=== PATIENT | male | born 1965 | race Caucasian/White ===

== ENCOUNTER 2018-02-12 11:20 | Inpatient (IN) | payer BC ==
[~2018-02-12] VITALS: Ht 177.8 cm; Wt 93.0 kg
[2018-02-12] MEDS ORDERED: SODIUM CHLORIDE 0.9% 1000ML 1,000 ML IV STA (11:52)
[2018-02-12 12:30] LABS: BASOPHILS % 0.3 % (0.0-1.0); EOSINOPHILS % 0.3 % (0.0-6.0); HEMATOCRIT 39.5 % (38.2-49.6); HEMOGLOBIN 14.7 g/dL (14.0-18.0); LYMPHOCYTES # (AUTO) 2.1 (1.0-3.2); LYMPHOCYTES % 23.8 % (18.0-39.1); MEAN CORPUSCULAR HEMOGLOBIN 38.6 pg (28-32); MEAN CORPUSCULAR HGB CONC 37.2 g/dL (31-35); MEAN CORPUSCULAR VOLUME 103.7 fL (81-99); MONOCYTES # (AUTO) 0.4 (0.2-0.8); MONOCYTES % 4.5 % (4.4-11.3); NEUTROPHILS # (AUTO) 6.3 (2.1-6.9); NEUTROPHILS % 70.5 % (38.7-80.0); PLATELET COUNT 237 x10e3/uL (140-360); RED BLOOD COUNT 3.81 x10e6/uL (4.3-5.7); RED CELL DISTRIBUTION WIDTH 13.5 % (11.7-14.4)
[2018-02-12 12:34] LABS: BILIRUBIN,URINE NEGATIVE (NEGATIVE); CLARITY,URINE CLOUDY (CLEAR); COLOR,URINE AMBER (YELLOW); KETONES,URINE NEGATIVE (NEGATIVE); LEUKOCYTE ESTERASE ,URINE NEGATIVE (NEGATIVE); NITRITE,URINE NEGATIVE (NEGATIVE); PROTEIN,URINE DIPSTICK TRACE (NEGATIVE); URINE UROBILINOGEN 8 mg/dL (0.2 - 1)
[2018-02-12 12:58] LABS: ALANINE AMINOTRANSFERASE 31 IU/L (0-55); ALBUMIN 3.2 g/dL (3.5-5.0); ALBUMIN/GLOBULIN RATIO 0.7 (0.8-2.0); ALKALINE PHOSPHATASE 124 IU/L (40-150); AMYLASE 47 U/L (25-125); ANION GAP 15.2 mmol/L (8-16); BLOOD UREA NITROGEN 10 mg/dL (7-26); BUN/CREATININE RATIO 12 (6-25); CALCIUM 9.4 mg/dL (8.4-10.2); CARBON DIOXIDE 24 mmol/L (22-29); CHLORIDE 97 mmol/L (98-107); CREATINE KINASE 26 IU/L (30-200); CREATININE, SERUM 0.83 mg/dL (0.72-1.25); EST GLOMERULAR FILTRATION RATE > 60 ML/MIN (60-); GLUCOSE 120 mg/dL (74-118); LIPASE 70 U/L (8-78); MAGNESIUM 1.3 MG/DL (1.3-2.1); POTASSIUM 4.2 mmol/L (3.5-5.1); SODIUM 132 mmol/L (136-145)
[2018-02-12 12:59] LABS: EPITHELIAL CELLS,URINE FEW /LPF; TRANSITIONAL EPI CELLS,URINE RARE
[2018-02-12] MEDS ORDERED: SODIUM CHLORIDE 0.9% 50ML 50 ML ONE (13:21)
[2018-02-12] MEDS ORDERED: DIATRIZOATE MEGL/DIATRIZOA SOD 30 ML BTL PO ONE (13:21)
[2018-02-12] MEDS ORDERED: IOPAMIDOL 370 MG/ML 200 ML INFUS..BTL INJ ONE (13:21)
[2018-02-12] MEDS ORDERED: CLONIDINE HCL 0.1 MG TAB PO ONE (13:45)
[2018-02-12] MEDS ORDERED: MORPHINE SULFATE 2 MG/ML SYR IV STA (13:49)
[2018-02-12] MEDS ORDERED: HYDRALAZINE HCL 20 MG/ML VIAL IV NR (15:30)
--- NOTE | 2018-02-12 15:44 | Diagnostic Imaging Report ---
PROCEDURE: CT ABDOMEN AND PELVIS WITH CONTRAST TECHNIQUE: The abdomen and pelvis were scanned utilizing a multidetector helical scanner from the diaphragm to the lesser trochanter after the IV administration of 100 cc of Isovue 370 and the oral administration of water. Coronal and sagittal multiplanar reformations were obtained. COMPARISON: [facility], CT, CT ABDOMEN WOW, 01/14/2017, 13:19. INDICATIONS: lower abdominal pain FINDINGS: LOWER THORAX: Stable scarring and bronchiectatic changes in the posteromedial left lower lobe (for example series 2, images 5-12). HEPATOBILIARY: Mild nodularity of the hepatic contour. Several hepatic lesions are identified: * Irregularly shaped 4.2 x 2.1 cm peripherally enhancing hypodense lesion in hepatic segment BRAXTON (series 2 image 11). * Ill-defined 2.7 x 3.0 cm hypodense lesion with questionable peripheral enhancement in hepatic segment BRAXTON (series 2 image 16). * Adjacent 1.8 x 1.4 cm and 2.1 x 2.0 cm hypodense lesions in hepatic segment BRAXTON/II (series 2, images 17 and 19). * Ill-defined 2.5 x 2.2 cm peripherally enhancing lesion in hepatic segment VIII (series 2 image 9). * Ill-defined 2.7 x 2.1 cm hypodense lesion with associated capsular retraction in peripheral aspect of hepatic segment VII (series 2, image 14). * Ill-defined 3.2 x 1.6 cm hypodense lesion in peripheral aspect of hepatic segment V, with associated capsular retraction (series 2, image 17). * Partly exophytic 1.3 x 1.2 cm hypodense lesion in the inferior tip of likely hepatic segment V (series 2 image 26). * Ill-defined 1.9 x 1.5 cm hypodense lesion in hepatic segment V (series 2, image 19). * Likely 1.8 x 2.3 cm hypodense lesion in the inferior aspect of segment IVB (series 2, image 23 and coronal image 34). No intra-or extrahepatic biliary ductal dilation. SPLEEN: No splenomegaly. PANCREAS: No focal masses or ductal dilatation. ADRENALS: No adrenal nodules. KIDNEYS/URETERS: No hydronephrosis, stones, or solid mass lesions. PELVIC ORGANS/BLADDER: Bladder, prostate, and seminal vesicles are unremarkable. PERITONEUM / RETROPERITONEUM: No free air or fluid. LYMPH NODES: Bilaterally enlarged gastrohepatic ligament node (series 2, image 19) which measures 1.2 cm in short axis, ezio hepatis/celiac axis node (series 2, image 22), which measures 1.2 cm in short axis. No retroperitoneal, mesenteric, pelvic, or inguinal adenopathy. VESSELS: Celiac trunk, superior and inferior mesenteric, and bilateral renal arteries are patent. Portal, superior mesenteric, and splenic veins are patent. Portal vein measures 1.5 cm at the ezio hepatis. GI TRACT: Focal moderate wall thickening in the proximal sigmoid colon, with presence of shouldering (series 2, image 73 and sagittal image 80), which measures approximately 3 cm in length. Borderline to mild dilation of the sigmoid colon and descending colon proximal to this lesion, which measure 5.8-6.6 cm. Rest of the bowel has normal caliber. Large amount of retained stool in the ascending, transverse, and descending colon. Appendix is well identified, and normal in caliber. BONES AND SOFT TISSUES: No aggressive lytic lesions. Degenerative disc changes in the lower thoracic and lumbosacral spine, with grade 1 anterolisthesis of L4 on L5. Facet hypertrophy. L4-L5 and L5-S1. Tiny fat-containing of medical hernia. Soft tissues are otherwise unremarkable. IMPRESSION: 1. Multiple irregularly shaped hypodense lesions in the liver, some of which are peripherally enhancing and associated with capsular retraction. Given the mild cirrhotic features, this may represent multifocal HCC versus metastatic disease (see item #2). This may be further assessed with contrast-enhanced abdominal MRI with liver mass protocol 2. Focal moderate wall thickening in the proximal sigmoid colon, with presence of shouldering is suspicious for colonic neoplasm (likely adenocarcinoma). Direct visualization with endoscopy is recommended for further evaluation. 3. Mildly enlarged gastrohepatic, and ezio hepatis/celiac axis nodes are likely reactive. Orion Worrell M.D. Dictated by: Orion Worrell M.D. on 02/12/2018 at 15:44 Electronically approved by: Orion Worrell M.D. on 02/12/2018 at 15:44
[2018-02-12] MEDS: SODIUM CHLORIDE 0.9% 1000ML 1,000 ML IV SCH (16:23)
--- OUTSIDE RECORDS SUMMARY | 2018-02-12 16:34 | XMS REPORT ---
Author Author [facility] Address Unknown Phone Unavailable Care Team Providers Care Catia Designer Name Role Phone RADHA VITAL Unavailable Unavailable Problems This patient has no known problems. Allergies, Adverse Reactions, Alerts This patient has no known allergies or adverse reactions. Medications This patient has no known medications. Results Test Description Test Time Test Comments Text Results Atomic Results Result Comments CT ABDOMEN/PELVIS W [place] [id number] [place] [id number] Patient Name: IDRIS BATES MR #: [id number] : 1965 Age/Sex: 52/M Req #: [id number] Adm Physician: Ordered by: RAMU BUSTOS CHEMISTS Report #: [id number] Location: ER Room/Bed: Procedure: [id number] CT/CT ABDOMEN/PELVIS W Exam Date: 02/12/18 Exam Time: 1430 REPORT STATUS: Signed PROCEDURE: CT ABDOMEN AND PELVIS WITH CONTRAST TECHNIQUE: The abdomen and pelvis were scanned utilizing a multidetector helical scanner from the diaphragm to the lesser trochanter after the IV administration of 100 cc of Isovue 370 and the oral administration of water. Coronal and sagittal multiplanar reformations were obtained. COMPARISON: [facility], CT, CT ABDOMEN WOW, 01/14/2017, 13:19. INDICATIONS: lower abdominal pain FINDINGS: LOWER THORAX: Stable scarring and bronchiectatic changes in the posteromedial left lower lobe (for example series 2, images 5-12). HEPATOBILIARY: Mild nodularity of the hepatic contour. Several hepatic lesions are identified: * Irregularly shaped 4.2 x 2.1 cm peripherally enhancing hypodense lesion in hepatic segment BRAXTON (series 2 image 11). * Ill-defined 2.7 x 3.0 cm hypodense lesion with questionable peripheral enhancement in hepatic segment BRAXTON (series 2 image 16). * Adjacent 1.8 x 1.4 cm and 2.1 x 2.0 cm hypodense lesions in hepatic segment BRAXTON/II (series 2, images 17 and 19). * Ill-defined 2.5 x 2.2 cm peripherally enhancing lesion in hepatic segment VIII (series 2 image 9). * Ill-defined 2.7 x 2.1 cm hypodense lesion with associated capsular retraction in peripheral aspect of hepatic segment VII (series 2, image 14). * Ill-defined 3.2 x 1.6 cm hypodense lesion in peripheral aspect of hepatic segment V, with associated capsular retraction (series 2, image 17). * Partly exophytic 1.3 x 1.2 cm hypodense lesion in the inferior tip of likely hepatic segment V (series 2 image 26). * Ill-defined 1.9 x 1.5 cm hypodense lesion in hepatic segment V (series 2, image 19). * Likely 1.8 x 2.3 cm hypodense lesion in the inferior aspect of segment IVB (series 2, image 23 and coronal image 34). No intra-or extrahepatic biliary ductal dilation. SPLEEN: No splenomegaly. PANCREAS: No focal masses or ductal dilatation. ADRENALS: No adrenal nodules. KIDNEYS/URETERS: No hydronephrosis, stones, or solid mass lesions. PELVIC ORGANS/BLADDER: Bladder, prostate, and seminal vesicles are unremarkable. PERITONEUM / RETROPERITONEUM: No free air or fluid. LYMPH NODES: Bilaterally enlarged gastrohepatic ligament node (series 2, image 19) which measures 1.2 cm in short axis, ezio hepatis/celiac axis node (series 2 , image 22), which measures 1.2 cm in short axis. No retroperitoneal, mesenteric, pelvic, or inguinal adenopathy. VESSELS: Celiac trunk, superior and inferior mesenteric, and bilateral renal arteries are patent. Portal, superior mesenteric, and splenic veins are patent. Portal vein measures 1.5 cm at the ezio hepatis. GI TRACT: Focal moderate wall thickening in the proximal sigmoid colon, with presence of shouldering (series 2, image 73 and sagittal image 80), which measures approximately 3 cm in length. Borderline to mild dilation of the sigmoid colon and descending colon proximal to this lesion, which measure 5.8-6.6 cm. Rest of the bowel has normal caliber. Large amount of retained stool in the ascending, transverse, and descending colon. Appendix is well identified, and normal in caliber. BONES AND SOFT TISSUES: No aggressive lytic lesions. Degenerative disc changes in the lower thoracic and lumbosacral spine, with grade 1 anterolisthesis of L4 on L5. Facet hypertrophy. L4-L5 and L5-S1. Tiny fat-containing of medical hernia. Soft tissues are otherwise unremarkable. IMPRESSION: 1. Multiple irregularly shaped hypodense lesions in the liver, some of which are peripherally enhancing and associated with capsular retraction. Given the mild cirrhotic features, this may represent multifocal HCC versus metastatic disease (see item #2). This may be further assessed with contrast-enhanced abdominal MRI with liver mass protocol 2. Focal moderate wall thickening in the proximal sigmoid colon, with presence of shouldering is suspicious for colonic neoplasm (likely adenocarcinoma). Direct visualization with endoscopy is recommended for further evaluation. 3. Mildly enlarged gastrohepatic, and ezio hepatis/celiac axis nodes are likely reactive. Lc Worrell M.D. Dictated by: Lc Worrell M.D. on 02/12/2018 at 15:44 Electronically approved by: Lc Worrell M.D. on 02/12/2018 at 15:44 Dictated By: LC WORRELL MD [id number] Transcribed By: VIVIEN on 02/12/18 1544 COPY TO: RAMU BUSTOS NP
[2018-02-12] MEDS: MORPHINE SULFATE 2 MG/ML SYR IV STA ×2 (18:16→18:20)
--- NOTE | 2018-02-12 18:40 | Diagnostic Imaging Report ---
PROCEDURE:ABDOMINAL ULTRASOUND COMPARISON:[facility], CT, CT ABDOMEN/PELVIS W, 02/12/2018, 14:29. INDICATIONS:RUQ LIVER NEOPLASMS, CONCERN FOR HCC FINDINGS: Limited exam due to overlying bowel gas. Liver: 14.5 cm. Mildly heterogeneous hepatic parenchymal echogenicity. Hepatic contour is difficult to assess. Several mildly hypoechoic lesions are noted in both hepatic lobes, corresponding to the abnormalities on CT performed same date, which measure 2.3 x 1.9 x 2.3 cm and 1.6 x 1.7 x 1.7 cm in the left lobe and 1.8 x 2.3 x 2.4 cm in the right lobe. Main portal vein: 0.9 cm. Hepatopetal flow. Gallbladder: Hydropic, measuring 10.0 x 4.1 x 3.4 cm. No stones or sludge, wall thickening, or pericholecystic fluid. Common Bile Duct: Not visualized. Sonographic Caldwell's sign: Negative Right kidney: 10.1 cm. No solid or cystic mass, echogenic calculi, or hydronephrosis. Normal parenchymal echogenicity. Left kidney: 10.1 cm. No solid or cystic mass, echogenic calculi, or hydronephrosis. Normal parenchymal echogenicity. Spleen: 9.7 cm. No focal lesions. Pancreas: Obscured by overlying bowel gas. Inferior vena cava: Obscured by overlying bowel gas. Aorta: Obscured by overlying bowel gas. Ascites: None. CONCLUSION: 1. Limited exam due to overlying bowel gas, as described. 2. Mildly hypoechoic lesions in both hepatic lobes, corresponding to the abnormalities previously described and better visualized on prior CT performed same date. These remain indeterminate. Multifocal HCC versus metastatic lesions are diagnostic considerations. Recommend evaluation with contrast-enhanced MRI abdomen, with liver mass protocol. Orion Worrell M.D. Dictated by: Orion Worrell M.D. on 02/12/2018 at 18:30 Electronically approved by: Orion Worrell M.D. on 02/12/2018 at 18:41
[2018-02-12 19:00] VITALS: BP 142/103
[2018-02-12 20:33] VITALS: BP 142/103
[2018-02-12 20:40] VITALS: BP 142/103
[2018-02-13 00:27] VITALS: BP 152/104
[2018-02-13] MEDS: ONDANSETRON HCL INJ 2 MG/ML VIAL IV PRN (03:33)
[2018-02-13] MEDS: MORPHINE SULFATE 2 MG/ML SYR IV PRN ×2 (03:33→16:54)
[2018-02-13 04:00] VITALS: BP 146/98
[2018-02-13] MEDS: SODIUM CHLORIDE 0.9% 1000ML 1,000 ML IV SCH ×3 (05:20→16:13)
[2018-02-13 06:14] LABS: BASOPHILS % 0.3 % (0.0-1.0); EOSINOPHILS # (AUTO) 0.1 (0.0-0.4); EOSINOPHILS % 0.7 % (0.0-6.0); HEMATOCRIT 32.4 % (38.2-49.6); HEMOGLOBIN 11.9 g/dL (14.0-18.0); LYMPHOCYTES # (AUTO) 1.6 (1.0-3.2); LYMPHOCYTES % 22.9 % (18.0-39.1); MEAN CORPUSCULAR HGB CONC 36.7 g/dL (31-35); MEAN CORPUSCULAR VOLUME 106.2 fL (81-99); MONOCYTES # (AUTO) 0.4 (0.2-0.8); MONOCYTES % 5.9 % (4.4-11.3); NEUTROPHILS # (AUTO) 4.8 (2.1-6.9); NEUTROPHILS % 69.6 % (38.7-80.0); PLATELET COUNT 158 x10e3/uL (140-360); RED BLOOD COUNT 3.05 x10e6/uL (4.3-5.7); RED CELL DISTRIBUTION WIDTH 13.8 % (11.7-14.4)
[2018-02-13 06:41] LABS: ALANINE AMINOTRANSFERASE 23 IU/L (0-55); ALBUMIN 2.5 g/dL (3.5-5.0); ALBUMIN/GLOBULIN RATIO 0.8 (0.8-2.0); ALKALINE PHOSPHATASE 85 IU/L (40-150); ANION GAP 11.2 mmol/L (8-16); BLOOD UREA NITROGEN 10 mg/dL (7-26); BUN/CREATININE RATIO 14 (6-25); CALCIUM 8.3 mg/dL (8.4-10.2); CARBON DIOXIDE 22 mmol/L (22-29); CHLORIDE 102 mmol/L (98-107); CREATININE, SERUM 0.69 mg/dL (0.72-1.25); EST GLOMERULAR FILTRATION RATE > 60 ML/MIN (60-); GLUCOSE 92 mg/dL (74-118); POTASSIUM 4.2 mmol/L (3.5-5.1); SODIUM 131 mmol/L (136-145)
[2018-02-13 07:51] VITALS: BP 159/106
[2018-02-13] MEDS: MULTIVITAMINS- 12 INJECTION 10 ML, FOLIC ACID MDV 5 MG, THIAMINE HCL INJ 100 MG in SODI... IV SCH ×2 (10:45→20:08)
[2018-02-13] MEDS ORDERED: PEG (High)/E-LYTE SOLN 4,000 ML BTL PO NR (11:00)
[2018-02-13] MEDS: CHLORDIAZEPOXIDE HCL 25 MG CAP PO SCH ×2 (11:12→17:00)
[2018-02-13 11:41] VITALS: BP 133/96
[2018-02-13 16:05] VITALS: BP 141/94
[2018-02-13] MEDS: METOPROLOL TARTRATE 50 MG TAB PO SCH (16:55)
[2018-02-13 19:10] VITALS: BP 156/93
[2018-02-14] MEDS: MORPHINE SULFATE 2 MG/ML SYR IV PRN ×3 (00:01→19:52)
[2018-02-14] MEDS: SODIUM CHLORIDE 0.9% 1000ML 1,000 ML IV SCH ×3 (00:13→16:13)
[2018-02-14] MEDS: CHLORDIAZEPOXIDE HCL 25 MG CAP PO SCH ×4 (05:05→18:53)
[2018-02-14] MEDS: MULTIVITAMINS- 12 INJECTION 10 ML, FOLIC ACID MDV 5 MG, THIAMINE HCL INJ 100 MG in SODI... IV SCH ×2 (06:16→16:52)
[2018-02-14 06:30] LABS: BASOPHILS % 0.2 % (0.0-1.0); EOSINOPHILS % 0.5 % (0.0-6.0); HEMATOCRIT 34.4 % (38.2-49.6); HEMOGLOBIN 12.6 g/dL (14.0-18.0); LYMPHOCYTES # (AUTO) 1.9 (1.0-3.2); LYMPHOCYTES % 23.3 % (18.0-39.1); MEAN CORPUSCULAR HEMOGLOBIN 38.8 pg (28-32); MEAN CORPUSCULAR HGB CONC 36.6 g/dL (31-35); MEAN CORPUSCULAR VOLUME 105.8 fL (81-99); MONOCYTES # (AUTO) 0.8 (0.2-0.8); MONOCYTES % 9.8 % (4.4-11.3); NEUTROPHILS # (AUTO) 5.4 (2.1-6.9); NEUTROPHILS % 65.6 % (38.7-80.0); PLATELET COUNT 164 x10e3/uL (140-360); RED BLOOD COUNT 3.25 x10e6/uL (4.3-5.7); RED CELL DISTRIBUTION WIDTH 13.2 % (11.7-14.4)
[2018-02-14 06:50] LABS: ANION GAP 13.3 mmol/L (8-16); BLOOD UREA NITROGEN 10 mg/dL (7-26); BUN/CREATININE RATIO 15 (6-25); CALCIUM 8.5 mg/dL (8.4-10.2); CARBON DIOXIDE 20 mmol/L (22-29); CHLORIDE 102 mmol/L (98-107); CREATININE, SERUM 0.66 mg/dL (0.72-1.25); EST GLOMERULAR FILTRATION RATE > 60 ML/MIN (60-); GLUCOSE 73 mg/dL (74-118); POTASSIUM 4.3 mmol/L (3.5-5.1); SODIUM 131 mmol/L (136-145)
[2018-02-14 08:08] VITALS: BP 139/81
[2018-02-14] MEDS: METOPROLOL TARTRATE 50 MG TAB PO SCH ×2 (08:53→17:00)
[2018-02-14 09:57] VITALS: BP 139/81
[2018-02-14 11:43] VITALS: BP 131/92
[2018-02-14] MEDS ORDERED: PROPOFOL IV EMULSION 10 MG/ML 50 ML VIAL ONE (13:34)
[2018-02-14] MEDS ORDERED: GLUCAGON FOR INJ 1 MG VIAL ONE (13:34)
[2018-02-14] MEDS ORDERED: LIDOCAINE HCL 2% LOCAL INJ 5 ML SDV VIAL INJ ONE (13:34)
[2018-02-14] MEDS ORDERED: MIDAZOLAM HCL 2 MG/2 ML VIAL ONE (13:48)
[2018-02-14] MEDS ORDERED: FENTANYL CITRATE/PF 100MCG/2 ML INJ ONE (13:48)
[2018-02-14 16:25] VITALS: BP 144/85
[2018-02-14 19:10] VITALS: BP 139/89
[2018-02-14] MEDS: ONDANSETRON HCL INJ 2 MG/ML VIAL IV PRN (19:52)
[2018-02-14 20:12] VITALS: BP 139/89
[2018-02-15] VITALS (16 sets, daily range): BP systolic 76–163; BP diastolic 52–108
[2018-02-15] MEDS: MIDAZOLAM HCL 25 MG in SODIUM CHLORIDE 0.9% 50ML 45 ML IV PRN (00:10)
[2018-02-15] MEDS: SODIUM CHLORIDE 0.9% 1000ML 1,000 ML IV SCH ×2 (00:13→08:09)
[2018-02-15] MEDS: MULTIVITAMINS- 12 INJECTION 10 ML, FOLIC ACID MDV 5 MG, THIAMINE HCL INJ 100 MG in SODI... IV SCH ×3 (02:32→22:48)
[2018-02-15] MEDS: CHLORDIAZEPOXIDE HCL 25 MG CAP PO SCH ×4 (05:04→18:00)
[2018-02-15] MEDS: MORPHINE SULFATE 2 MG/ML SYR IV PRN ×2 (05:04→11:00)
[2018-02-15] MEDS: METOPROLOL TARTRATE 50 MG TAB PO SCH ×2 (08:28→16:30)
--- NOTE | 2018-02-15 11:52 | Operative Report ---
DATE OF PROCEDURE: February 14, 2018 REFERRING PHYSICIAN: Dr. Dhruv Diaz. PROCEDURE PERFORMED: Flexible sigmoidoscopy. INDICATIONS FOR PROCEDURE: Abnormal CT scan, masses in liver. MEDICATION: Patient was done under MAC. Please see anesthesiologist's note. PROCEDURE: With patient in the left lateral decubitus position, flexible fiberoptic Olympus colonoscope was inserted into the rectum with ease and advanced to approximately 20 cm from anal verge. A large obstructing tumor was noted which could not be traversed with the scope. The scope was then withdrawn and an EGD scope was then reinserted to the aforementioned site and even with EGD scope the tumor could not be traversed as it appeared to be a high-grade obstruction. The scope was retroflexed into the distal rectum and small internal hemorrhoids were noted, none of which was actively bleeding. The scope was then straightened out and was subsequently withdrawn. Patient tolerated the procedure well. IMPRESSION: 1. Obstructing tumor, sigmoid colon at 20 cm from anal verge, biopsied. 2. Internal hemorrhoids, none actively bleeding. PLAN: Follow up histology. Continue clear liquid diet. Will obtain a general surgical consultation with Dr. Dima Villeda. Job#: [id number] cc:DHRUV DIAZ MD cc:DIMA VILLEDA MD AND MJ VILLEDA MD
[2018-02-15] MEDS ORDERED: SODIUM CHLORIDE 0.9% 250ML 250 ML IV ONE (13:15)
[2018-02-15] MEDS ORDERED: SOD CHL 0.45%/POT CHL 20MEQ 1,000 ML IV SCH (13:30)
[2018-02-15] MEDS ORDERED: PHENYLEPHRINE HCL 1% 10 MG/ML VIAL ONE (13:37)
[2018-02-15] MEDS ORDERED: ROCURONIUM BROMIDE 10 MG/ML 5ML VIAL ONE (13:37)
[2018-02-15] MEDS ORDERED: LIDOCAINE HCL 2% LOCAL INJ 5 ML SDV VIAL INJ ONE (13:37)
[2018-02-15] MEDS ORDERED: DESFLURANE 240 ML BTL INH ONE (13:37)
[2018-02-15] MEDS ORDERED: PROPOFOL IV EMULSION 10 MG/ML 20 ML VIAL ONE (13:37)
[2018-02-15 13:52] LABS: BASOPHILS % 0.2 % (0.0-1.0); EOSINOPHILS % 0.1 % (0.0-6.0); HEMATOCRIT 32.2 % (38.2-49.6); HEMOGLOBIN 11.6 g/dL (14.0-18.0); LYMPHOCYTES # (AUTO) 1.2 (1.0-3.2); LYMPHOCYTES % 12.4 % (18.0-39.1); MEAN CORPUSCULAR HEMOGLOBIN 38.5 pg (28-32); MONOCYTES # (AUTO) 1.2 (0.2-0.8); MONOCYTES % 12.4 % (4.4-11.3); NEUTROPHILS % 74.2 % (38.7-80.0); PLATELET COUNT 147 x10e3/uL (140-360); RED BLOOD COUNT 3.01 x10e6/uL (4.3-5.7); RED CELL DISTRIBUTION WIDTH 13.9 % (11.7-14.4)
[2018-02-15] MEDS ORDERED: MORPHINE SULFATE 2 MG/ML SYR IV PRN (14:00)
[2018-02-15 14:02] LABS: INR 1.17
[2018-02-15 14:03] LABS: PARTIAL THROMBOPLASTIN TIME 27.7 seconds (23.8-35.5)
[2018-02-15 14:12] LABS: ALANINE AMINOTRANSFERASE 17 IU/L (0-55); ALBUMIN 2.4 g/dL (3.5-5.0); ALBUMIN/GLOBULIN RATIO 0.6 (0.8-2.0); ALKALINE PHOSPHATASE 64 IU/L (40-150); ANION GAP 11.8 mmol/L (8-16); BLOOD UREA NITROGEN 12 mg/dL (7-26); BUN/CREATININE RATIO 16 (6-25); CALCIUM 8.4 mg/dL (8.4-10.2); CARBON DIOXIDE 21 mmol/L (22-29); CHLORIDE 100 mmol/L (98-107); CREATININE, SERUM 0.73 mg/dL (0.72-1.25); EST GLOMERULAR FILTRATION RATE > 60 ML/MIN (60-); GLUCOSE 80 mg/dL (74-118); POTASSIUM 3.8 mmol/L (3.5-5.1); SODIUM 129 mmol/L (136-145)
--- NOTE | 2018-02-15 14:28 | Diagnostic Imaging Report ---
EXAMINATION: PA and lateral views of the chest. COMPARISON: None CLINICAL HISTORY: Abdominal neoplasm, preoperative evaluation DISCUSSION: Lines/tubes: None. Lungs: The lungs are well inflated and clear. There is no evidence of pneumonia or pulmonary edema. Pleura: There is no pleural effusion or pneumothorax. Heart and mediastinum: The cardiomediastinal silhouette is normal. Bones and soft tissues: No acute bony abnormalities. Pneumoperitoneum. IMPRESSION: No acute cardiopulmonary disease. Pneumoperitoneum. Discussed with the patient's nurse at 2:23 PM. Patient had a very recent colonoscopy and a mass was visualized. Signed by: Dr. Herman Palomo M.D. on 02/15/2018 2:24 PM
[2018-02-15] MEDS: SODIUM CHLORIDE 0.9% 250ML IRRIG IR SCH ×2 (14:42→21:15)
[2018-02-15] MEDS: PIPER-TAZ 3.375 GM 50 ML IV SCH ×2 (14:42→18:00)
[2018-02-15] MEDS: METRONIDAZOLE 500MG/NS 100ML 100 ML IV SCH ×2 (16:21→18:00)
[2018-02-15] MEDS: KCL 20MEQ/.9 SOD CHL 1,000 ML IV SCH (16:30)
--- NOTE | 2018-02-15 17:10 | Diagnostic Imaging Report ---
EXAMINATION: CT of the abdomen and pelvis without contrast. TECHNIQUE: Helical CT images of the abdomen and pelvis were performed from the lung bases to the lesser trochanters. No intravenous contrast was given per renal stone protocol. Coronal and sagittal reformatted images were obtained. COMPARISON: None. CLINICAL HISTORY:Recent colonoscopy, bowel perforation DISCUSSION: ABSENCE OF INTRAVENOUS CONTRAST DECREASES SENSITIVITY FOR DETECTION OF FOCAL LESIONS AND VASCULAR PATHOLOGY. ABDOMEN/PELVIS: LOWER THORAX: Bilateral lower lung atelectasis. Trace effusions. HEPATOBILIARY:Nodular contour of the liver with enlarged caudate lobe and left hepatic lobe. SPLEEN: No splenomegaly. PANCREAS: No focal masses or ductal dilatation. ADRENALS: No adrenal nodules. KIDNEYS/URETERS: No hydronephrosis, stones, or solid mass lesions. PELVIC ORGANS/BLADDER: The bladder is normal. PERITONEUM/RETROPERITONEUM: Pneumoperitoneum and free fluid in the pelvis. No air adjacent to the sigmoid mass. Foci adjacent to the cecum axial image 69. LYMPH NODES: No intra-abdominal,retroperitoneal, pelvic or inguinal lymphadenopathy. VESSELS: Limited evaluation. GI TRACT: Colonic mass with severe narrowing in the sigmoid colon axial image 85. BONES AND SOFT TISSUES: No bony destructive lesions. No soft tissue abnormalities. IMPRESSION: Sigmoid adenocarcinoma with severe narrowing. No visualized metastasis. Pneumoperitoneum and free fluid in the abdomen. The origin of the pneumoperitoneum is indeterminate, but possibly upstream from the obstruction at the cecum. Cirrhotic morphology of the liver. Signed by: Dr. Herman Palomo M.D. on 02/15/2018 5:06 PM
[2018-02-15] MEDS ORDERED: MIDAZOLAM HCL 2 MG/2 ML VIAL ONE (17:27)
[2018-02-15] MEDS ORDERED: FENTANYL CITRATE/PF 100MCG/2 ML INJ ONE (17:27)
[2018-02-15] MEDS: ALBUTEROL/IPRATROPIUM 3 ML NEB NEB SCH (19:00)
[2018-02-15] MEDS ORDERED: HYDROGEN PEROXIDE 120 ML BTL ONE (21:48)
[2018-02-15] MEDS ORDERED: MORPHINE SULFATE INJ 10 MG/ML ONE (22:34)
[2018-02-15] MEDS ORDERED: METOPROLOL TARTRATE INJ 1 MG/ML VIAL ONE (23:16)
[2018-02-15] MEDS ORDERED: LABETALOL HCL 20 ML ONE (23:18)
[2018-02-15] MEDS ORDERED: PROPOFOL IV EMULSION 10MG/ML 100 ML ONE (23:25)
[2018-02-16] VITALS (170 sets, daily range): BP systolic 59–146; BP diastolic 41–109
[2018-02-16] MEDS: LACTATED RINGER'S 1,000 ML IV SCH ×4 (00:21→19:15)
[2018-02-16] MEDS: SODIUM CHLORIDE 0.9% 250ML IRRIG IR SCH ×6 (00:22→22:00)
[2018-02-16] MEDS: KCL 20MEQ/.9 SOD CHL 1,000 ML IV SCH ×3 (00:22→16:30)
[2018-02-16] MEDS: METRONIDAZOLE 500MG/NS 100ML 100 ML IV SCH ×3 (00:25→18:00)
[2018-02-16] MEDS: PIPER-TAZ 3.375 GM 50 ML IV SCH ×3 (00:25→18:00)
[2018-02-16] MEDS ORDERED: PROPOFOL IV EMULSION 10MG/ML 100 ML IV PRN (00:45)
--- NOTE | 2018-02-16 00:55 | Operative Report ---
DATE OF PROCEDURE: February 15, 2018 PREOPERATIVE DIAGNOSES: 1. Totally obstructed sigmoid colon cancer. 2. Massive liver metastasis. 3. Pneumoperitoneum. 4. Alcoholism. 5. Hepatitis C. POSTOPERATIVE DIAGNOSES: 1. Totally obstructed sigmoid colon cancer. 2. Massive liver metastasis. 3. Diiastatic cecal perforation. 4. Alcoholism. 5. Hepatitis C. PROCEDURES PERFORMED: 1. Exploratory laparotomy. 2. Total abdominal colectomy. 3. End ileostomy. 4. Peritoneal irrigation. PUMP SERVICER: JALEN Bond ESTIMATED BLOOD LOSS: less 250 cc. DRAINS: One 1/4-inch [place] to the wound. COMPLICATIONS: None. INDICATIONS AND FINDINGS: The patient is a pleasant, but unfortunate 52-year-old male admitted to the hospital with abdominal pain, nausea, vomiting, weight loss of about 30 pounds in the last 33 months.. He was found to have an obstructing colon carcinoma upon admission by colonoscopy. CT revaled multiple liver mets.The patient' s had a preoperative chest x-ray that revealed pneumoperitoneum. He was taken emergently to the operating room for laparotomy and stoma formation. INTRAOPERATIVE FINDINGS: The patient had obstructing sigmoid colon carcinoma with massive liver mets in both lobes of the liver. There was a diastatic perforation of the cecum. There was some spillage of stool, but it was minimal. There was no evidence of peritonitis. A total colectomy was then performed with resection of the tumor just above the peritoneal reflection. The liver metastasis were multiple and bulky. The patient had dilatation of the entire colon all the way from the cecum to the area proximal to the obstructing sigmoid colon carcinoma. DESCRIPTION OF THE PROCEDURE: With the patient lying on the operative table in the supine position, after administration of general endotracheal anesthesia, he was prepped and draped for exploratory laparotomy. The abdomen was entered by a long midline incision, carried across the umbilicus, and then the abdominal cavity was entered. There was some murky fluid seen in the abdomen. We then identified the cecum. There was significant dilatation of the entire colon up to the level of the cecum where there was a small perforation. As soon as we identified that there was necrotic diastatic perforation of the cecum, we clamped that area and transected it with TA 60 stapler stopping any contamination .We then mobilized the entire colon across the abdomen beginning with the cecum, ascending colon, transverse colon, splenic flexure, left colon, and sigmoid colon all the way up to the area below the tumor. We were able to avoid any major gross contamination or perforation. We took down the blood supply to the colon with Enseal instrument and all silk sutures _for the major blood vessels, we were able to remove the entire specimen pretty much intact. The area of the tumor in the pelvic near the pelvic wall appeared to have some desmoplastic reaction and all of that was removed en bloc. The ureter was identified and preserved. After we resected the specimen, we copiously irrigated the abdominal cavity, some oozes were cauterized. The spleen was examined and it was intact without any bleeding. After we did that and irrigated the abdomen, we went ahead and brought out the ileostomy in the right lower quadrant region just along the rectus sheath and near the area of the umbilicus where all the skin of the abdominal wall in that location was flat without any indentation. We brought out the distal ileum through a cruciate incision in the rectus sheath. Then, we closed the abdominal cavity using #0 Vicryl for the peritoneum and a running 1 PDS for the fascia. The sponge and instrument counts were pronounced correct multiple times throughout this procedure at my request. After we did that, we closed the subcutaneous tissues with #0 chromic and then we placed a 1/4-inch [place] drain to drain the wound and brought it out through a stab wound inferior to the incision and secured there with 2-0 silk. We closed the skin with a combination of meghan and 2-0 silk. After we did that, we isolated the incision from the ileostomy site and then we matured the ileostomy in an inverting fashion with 4 quadrant stitches that incorporated the mucosa, serosa, and subcuticular plane and the remaining quadrant incision incorporated only the mucosa and the subcuticular plane. We then placed a three and a quarter colostomy bag around the stoma and secured it there. At the end of the procedure, the patient was in hemodynamically stable condition. The ileostomy appeared viable The family was informed of the findings and guarded condition with a poor prognosis. Job#: [id number] DR COX
[2018-02-16] MEDS: ALBUTEROL/IPRATROPIUM 3 ML NEB NEB SCH ×3 (01:00→19:10)
[2018-02-16] MEDS ORDERED: SODIUM CHLORIDE 0.9% 1000ML 1,000 ML ONE (01:29)
[2018-02-16 01:37] LABS: BASOPHILS % 0.3 % (0.0-1.0); HEMATOCRIT 31.3 % (38.2-49.6); HEMOGLOBIN 11.1 g/dL (14.0-18.0); LYMPHOCYTES # (AUTO) 0.6 (1.0-3.2); LYMPHOCYTES % 7.7 % (18.0-39.1); MEAN CORPUSCULAR HEMOGLOBIN 39.4 pg (28-32); MEAN CORPUSCULAR HGB CONC 35.5 g/dL (31-35); MONOCYTES # (AUTO) 0.8 (0.2-0.8); MONOCYTES % 10.7 % (4.4-11.3); NEUTROPHILS # (AUTO) 5.9 (2.1-6.9); NEUTROPHILS % 79.3 % (38.7-80.0); PLATELET COUNT 171 x10e3/uL (140-360); RED BLOOD COUNT 2.82 x10e6/uL (4.3-5.7); RED CELL DISTRIBUTION WIDTH 13.9 % (11.7-14.4)
[2018-02-16] MEDS ORDERED: NOREPINEPHRINE INJ 4MG/4ML 8 MG in DEXTROSE 5% 250ML 250 ML IV PRN (01:45)
[2018-02-16] MEDS ORDERED: SODIUM CHLORIDE 0.9% 1000ML 1,000 ML IV ONE (01:45)
[2018-02-16 01:54] LABS: ANION GAP 11.2 mmol/L (8-16); BLOOD UREA NITROGEN 13 mg/dL (7-26); BUN/CREATININE RATIO 18 (6-25); CALCIUM 7.2 mg/dL (8.4-10.2); CARBON DIOXIDE 16 mmol/L (22-29); CHLORIDE 106 mmol/L (98-107); CREATININE, SERUM 0.71 mg/dL (0.72-1.25); EST GLOMERULAR FILTRATION RATE > 60 ML/MIN (60-); GLUCOSE 113 mg/dL (74-118); POTASSIUM 4.2 mmol/L (3.5-5.1); SODIUM 129 mmol/L (136-145)
[2018-02-16] MEDS: MIDAZOLAM HCL 25 MG in SODIUM CHLORIDE 0.9% 50ML 45 ML IV PRN ×3 (04:00→14:00)
[2018-02-16] MEDS: CHLORDIAZEPOXIDE HCL 25 MG CAP PO SCH ×2 (06:00)
[2018-02-16 06:14] LABS: BASOPHILS % 0.3 % (0.0-1.0); HEMATOCRIT 31.4 % (38.2-49.6); HEMOGLOBIN 11.2 g/dL (14.0-18.0); LYMPHOCYTES # (AUTO) 0.6 (1.0-3.2); LYMPHOCYTES % 5.6 % (18.0-39.1); MEAN CORPUSCULAR HEMOGLOBIN 39.3 pg (28-32); MEAN CORPUSCULAR HGB CONC 35.7 g/dL (31-35); MEAN CORPUSCULAR VOLUME 110.2 fL (81-99); MONOCYTES % 9.8 % (4.4-11.3); NEUTROPHILS # (AUTO) 8.1 (2.1-6.9); NEUTROPHILS % 82.6 % (38.7-80.0); PLATELET COUNT 168 x10e3/uL (140-360); RED BLOOD COUNT 2.85 x10e6/uL (4.3-5.7); RED CELL DISTRIBUTION WIDTH 14.3 % (11.7-14.4)
[2018-02-16 06:33] LABS: ALANINE AMINOTRANSFERASE 14 IU/L (0-55); ALBUMIN 1.6 g/dL (3.5-5.0); ALBUMIN/GLOBULIN RATIO 0.6 (0.8-2.0); ALKALINE PHOSPHATASE 42 IU/L (40-150); ANION GAP 12.3 mmol/L (8-16); BLOOD UREA NITROGEN 14 mg/dL (7-26); BUN/CREATININE RATIO 21 (6-25); CALCIUM 7.6 mg/dL (8.4-10.2); CARBON DIOXIDE 17 mmol/L (22-29); CHLORIDE 107 mmol/L (98-107); CREATININE, SERUM 0.68 mg/dL (0.72-1.25); EST GLOMERULAR FILTRATION RATE > 60 ML/MIN (60-); GLUCOSE 123 mg/dL (74-118); PHOSPHORUS 3.8 MG/DL (2.3-4.7); POTASSIUM 4.3 mmol/L (3.5-5.1); SODIUM 132 mmol/L (136-145)
--- NOTE | 2018-02-16 07:06 | Diagnostic Imaging Report ---
EXAMINATION: PA and lateral views of the chest. COMPARISON: 02/15/2018 CLINICAL HISTORY: Abdominal neoplasm, preoperative evaluation DISCUSSION: Lines/tubes: Endotracheal and NG tube are in good position. Lungs: Low lung volumes. There is no evidence of pneumonia or pulmonary edema. Pleura: There is no pleural effusion or pneumothorax. Heart and mediastinum: The cardiomediastinal silhouette is normal. Bones and soft tissues: No acute bony abnormalities. Degenerative changes of the right acromioclavicular joint Pneumoperitoneum. IMPRESSION: Stable chest. 1. No acute cardiopulmonary disease. 2. Pneumoperitoneum. 3. NG and endotracheal tube are in good position. Signed by: Dr. Armin Thrasher M.D. on 02/16/2018 7:02 AM
[2018-02-16 07:24] LABS: MAGNESIUM 1.1 MG/DL (1.3-2.1)
[2018-02-16] MEDS ORDERED: METOPROLOL TARTRATE INJ 1 MG/ML VIAL IV SCH (09:00)
[2018-02-16] MEDS: NICOTINE 21 MG/EA PATCH TOP SCH (11:00)
[2018-02-16 11:11] LABS: BAND NEUTROPHILS % (MANUAL) 12 %; LYMPHOCYTES % (MANUAL) 14 % (19-48); MONOCYTES % (MANUAL) 2 % (3.4-9.0); NEUTROPHILS % (MANUAL) 72 % (40-74); PLATELET ESTIMATE ADEQUATE; PLATELET MORPHOLOGY COMMENT NORMAL; RBC MORPHOLOGY COMMENT NORMAL
[2018-02-16] MEDS ORDERED: MAGNESIUM SULFATE 2GM/50ML 100 ML IV ONE ×2 (11:15→18:30)
[2018-02-16] MEDS ORDERED: HYDROMORPHONE 100 ML IV PRN (11:30)
--- NOTE | 2018-02-16 15:49 | Diagnostic Imaging Report ---
EXAMINATION: CHEST XRAY LINE PLACEMENT INDICATION: \S\S/P PICC LINE PLACEMENT \S\[id number] \S\[id number] COMPARISON: None FINDINGS: AP view TUBES and LINES: Interval placement of left PICC with the tip overlying the cavoatrial junction. Endotracheal and NG/OG tube remain unchanged. LUNGS: Lungs are well inflated. Bibasilar atelectasis, increased. PLEURA: No pleural effusion or pneumothorax. HEART AND MEDIASTINUM: The cardiomediastinal silhouette is unremarkable.. BONES AND SOFT TISSUES: No acute osseous lesion. Soft tissues are unremarkable. UPPER ABDOMEN: Pneumoperitoneum appears mildly increased. IMPRESSION: New left PICC with tip overlying the cavoatrial junction. Worsening bibasilar atelectasis. Increased free air, mainly in the right hemidiaphragm. This may be due to different patient position. Signed by: Dr. Clara Yuen M.D. on 02/16/2018 3:46 PM
[2018-02-16] MEDS: THIAMINE HCL INJ 100 MG/ML 2ML VIAL IV SCH (17:59)
[2018-02-16] MEDS ORDERED: SODIUM CHLORIDE 0.9% 250ML 250 ML ONE (18:09)
[2018-02-16] MEDS ORDERED: LACTATED RINGER'S 1,000 ML IV SCH (19:00)
[2018-02-16] MEDS ORDERED: ALBUMIN HUMAN 12.5GM / 50ML IV ONE (19:00)
[2018-02-16] MEDS ORDERED: ALBUMIN HUMAN 25 GM/ 100 ML IV ONE ×2 (21:45→23:00)
[2018-02-16] MEDS ORDERED: ACETAMINOPHEN 1000 MG/100 ML IV PRN (21:45)
[2018-02-16] MEDS ORDERED: ALBUMIN HUMAN 100 ML IV ONE (23:55)
[2018-02-17] VITALS (85 sets, daily range): BP systolic 85–130; BP diastolic 53–81
[2018-02-17] MEDS: PIPER-TAZ 3.375 GM 50 ML IV SCH ×4 (00:02→18:40)
[2018-02-17] MEDS: KCL 20MEQ/.9 SOD CHL 1,000 ML IV SCH (00:30)
[2018-02-17] MEDS: MIDAZOLAM HCL 25 MG in SODIUM CHLORIDE 0.9% 50ML 45 ML IV PRN ×4 (00:51→23:49)
[2018-02-17] MEDS: METRONIDAZOLE 500MG/NS 100ML 100 ML IV SCH ×4 (00:51→18:40)
[2018-02-17] MEDS: SODIUM CHLORIDE 0.9% 250ML IRRIG IR SCH ×6 (02:15→21:19)
[2018-02-17] MEDS: LACTATED RINGER'S 1,000 ML IV SCH ×2 (02:15→09:38)
[2018-02-17 05:01] LABS: BASOPHILS % 0.1 % (0.0-1.0); EOSINOPHILS % 0.1 % (0.0-6.0); LYMPHOCYTES # (AUTO) 0.9 (1.0-3.2); LYMPHOCYTES % 9.9 % (18.0-39.1); MEAN CORPUSCULAR HEMOGLOBIN 39.1 pg (28-32); MEAN CORPUSCULAR VOLUME 108.7 fL (81-99); MONOCYTES # (AUTO) 1.1 (0.2-0.8); MONOCYTES % 12.4 % (4.4-11.3); NEUTROPHILS # (AUTO) 6.6 (2.1-6.9); NEUTROPHILS % 76.1 % (38.7-80.0); PLATELET COUNT 117 x10e3/uL (140-360); RED BLOOD COUNT 1.84 x10e6/uL (4.3-5.7)
[2018-02-17 05:07] LABS: HEMOGLOBIN 7.2 g/dL (14.0-18.0)
[2018-02-17 05:24] LABS: ALANINE AMINOTRANSFERASE 10 IU/L (0-55); ALBUMIN 2.1 g/dL (3.5-5.0); ALBUMIN/GLOBULIN RATIO 1.1 (0.8-2.0); ALKALINE PHOSPHATASE 27 IU/L (40-150); ANION GAP 10.4 mmol/L (8-16); BLOOD UREA NITROGEN 21 mg/dL (7-26); BUN/CREATININE RATIO 25 (6-25); CALCIUM 7.7 mg/dL (8.4-10.2); CARBON DIOXIDE 22 mmol/L (22-29); CHLORIDE 104 mmol/L (98-107); CREATININE, SERUM 0.83 mg/dL (0.72-1.25); EST GLOMERULAR FILTRATION RATE > 60 ML/MIN (60-); GLUCOSE 126 mg/dL (74-118); POTASSIUM 3.4 mmol/L (3.5-5.1); SODIUM 133 mmol/L (136-145)
[2018-02-17] MEDS ORDERED: SODIUM CHLORIDE 0.9% 250ML 250 ML IV ONE ×2 (06:00→08:30)
[2018-02-17 08:22] LABS: BLAST CELLS % MANUAL 2; LYMPHOCYTES % (MANUAL) 12 % (19-48); METAMYELOCYTES % (MANUAL) 1 % (0-0); MYELOCYTES % (MANUAL) 3 % (0-0); NEUTROPHILS % (MANUAL) 81 % (40-74)
[2018-02-17 08:23] LABS: ANISOCYTOSIS SLIGHT; HYPOCHROMASIA MODERATE; PLATELET ESTIMATE SLIGHTLY DECREASED; PLATELET MORPHOLOGY COMMENT FEW LARGE; RBC MORPHOLOGY COMMENT NORMAL
[2018-02-17 08:24] LABS: POIKILOCYTOSIS SLIGHT
[2018-02-17] MEDS ORDERED: POTASSIUM CHLORIDE 20MEQ/100ML 100 ML IV PRN ×2 (08:30→15:00)
[2018-02-17] MEDS ORDERED: FAMOTIDINE 20 MG/2 ML VIAL IV NR (09:00)
[2018-02-17] MEDS ORDERED: DIPHENHYDRAMINE HCL INJ 50 MG/ML VIAL IV NR (09:00)
--- NOTE | 2018-02-17 09:36 | Consultation ---
DATE OF CONSULTATION: February 15, 2018 PULMONARY CONSULTATION PATIENT OF: Dr. Gaurav Sow, Dr. Joe Sow, and Dr. Jigar Villeda. I was called this evening by Dr. Villeda to see this unfortunate 52-year-old gentleman on his way to surgery with history of hepatitis C, history of alcoholism, drinking 8 ounces plus of rum a day. Admitted with abdominal pain, has difficulty eating. According to , he drinks half of a pound of rum a day. He also smokes. He has been able to work, however. He is found to have an obstructing cancer of the sigmoid colon. CT of the abdomen and pelvis today revealed cirrhotic liver and pneumoperitoneum in the abdomen upstream from the obstructing cecum. He also was found to have what appeared to be liver metastases. Patient is in danger of DTs. PHYSICAL EXAMINATION VITAL SIGNS: Temperature 98, pulse 113, respirations 20, and blood pressure 112/66. HEAD: Normocephalic, atraumatic. EYES: Extraocular movements intact. LUNGS: Diminished breath sounds. HEART: Regular rhythm. ABDOMEN: Distended and somewhat tender. EXTREMITIES: Nonedematous. PLAN: The patient is of course cleared for surgery. He may require mechanical ventilation postoperatively. Benzodiazepines will be continued as well as thiamine therapy for peritonitis with Flagyl and Zosyn. Thank you for this kind referral. Job#: [id number]
[2018-02-17] MEDS: THIAMINE HCL INJ 100 MG/ML 2ML VIAL IV SCH (09:45)
[2018-02-17] MEDS: NICOTINE 21 MG/EA PATCH TOP SCH (09:45)
[2018-02-17] MEDS: SODIUM CHLORIDE 0.9% 1000ML 1,000 ML IV SCH ×2 (10:51→17:46)
[2018-02-17 16:45] LABS: BASOPHILS % 0.1 % (0.0-1.0); EOSINOPHILS % 0.2 % (0.0-6.0); HEMOGLOBIN 9.4 g/dL (14.0-18.0); LYMPHOCYTES # (AUTO) 0.9 (1.0-3.2); LYMPHOCYTES % 10.4 % (18.0-39.1); MEAN CORPUSCULAR HEMOGLOBIN 36.4 pg (28-32); MEAN CORPUSCULAR HGB CONC 36.2 g/dL (31-35); MEAN CORPUSCULAR VOLUME 100.8 fL (81-99); NEUTROPHILS # (AUTO) 6.7 (2.1-6.9); NEUTROPHILS % 77.4 % (38.7-80.0); PLATELET COUNT 118 x10e3/uL (140-360); RED BLOOD COUNT 2.58 x10e6/uL (4.3-5.7); RED CELL DISTRIBUTION WIDTH 18.1 % (11.7-14.4)
[2018-02-17 16:58] LABS: ANION GAP 8.5 mmol/L (8-16); BLOOD UREA NITROGEN 16 mg/dL (7-26); BUN/CREATININE RATIO 25 (6-25); CALCIUM 7.6 mg/dL (8.4-10.2); CARBON DIOXIDE 22 mmol/L (22-29); CHLORIDE 107 mmol/L (98-107); CREATININE, SERUM 0.65 mg/dL (0.72-1.25); EST GLOMERULAR FILTRATION RATE > 60 ML/MIN (60-); GLUCOSE 100 mg/dL (74-118); POTASSIUM 3.5 mmol/L (3.5-5.1); SODIUM 134 mmol/L (136-145)
[2018-02-17] MEDS ORDERED: POTASSIUM CHLORIDE 20MEQ/100ML 100 ML IV ONE (17:45)
[2018-02-17] MEDS: METOPROLOL TARTRATE INJ 1 MG/ML VIAL IV SCH (21:19)
[2018-02-18] VITALS (60 sets, daily range): BP systolic 93–158; BP diastolic 59–117
[2018-02-18] MEDS: SODIUM CHLORIDE 0.9% 1000ML 1,000 ML IV SCH ×3 (00:22→12:40)
[2018-02-18] MEDS: PIPER-TAZ 3.375 GM 50 ML IV SCH ×4 (00:23→17:35)
[2018-02-18] MEDS: METRONIDAZOLE 500MG/NS 100ML 100 ML IV SCH ×4 (00:50→17:35)
[2018-02-18] MEDS: SODIUM CHLORIDE 0.9% 250ML IRRIG IR SCH ×6 (01:13→20:36)
[2018-02-18 06:09] LABS: BASOPHILS % 0.2 % (0.0-1.0); EOSINOPHILS # (AUTO) 0.1 (0.0-0.4); EOSINOPHILS % 0.6 % (0.0-6.0); HEMATOCRIT 26.3 % (38.2-49.6); HEMOGLOBIN 9.4 g/dL (14.0-18.0); LYMPHOCYTES % 12.1 % (18.0-39.1); MEAN CORPUSCULAR HEMOGLOBIN 36.6 pg (28-32); MEAN CORPUSCULAR HGB CONC 35.7 g/dL (31-35); MEAN CORPUSCULAR VOLUME 102.3 fL (81-99); MONOCYTES # (AUTO) 0.9 (0.2-0.8); MONOCYTES % 10.2 % (4.4-11.3); NEUTROPHILS # (AUTO) 6.4 (2.1-6.9); NEUTROPHILS % 75.7 % (38.7-80.0); PLATELET COUNT 129 x10e3/uL (140-360); RED BLOOD COUNT 2.57 x10e6/uL (4.3-5.7); RED CELL DISTRIBUTION WIDTH 19.1 % (11.7-14.4)
[2018-02-18 06:30] LABS: ALANINE AMINOTRANSFERASE 14 IU/L (0-55); ALBUMIN 1.7 g/dL (3.5-5.0); ALBUMIN/GLOBULIN RATIO 0.7 (0.8-2.0); ALKALINE PHOSPHATASE 43 IU/L (40-150); ANION GAP 9.5 mmol/L (8-16); BLOOD UREA NITROGEN 14 mg/dL (7-26); BUN/CREATININE RATIO 22 (6-25); CALCIUM 7.6 mg/dL (8.4-10.2); CARBON DIOXIDE 21 mmol/L (22-29); CHLORIDE 111 mmol/L (98-107); CREATININE, SERUM 0.64 mg/dL (0.72-1.25); EST GLOMERULAR FILTRATION RATE > 60 ML/MIN (60-); GLUCOSE 76 mg/dL (74-118); MAGNESIUM 1.7 MG/DL (1.3-2.1); PHOSPHORUS 2.4 MG/DL (2.3-4.7); POTASSIUM 3.5 mmol/L (3.5-5.1); SODIUM 138 mmol/L (136-145)
[2018-02-18] MEDS: LEVALBUTEROL HCL SOLN NEBU 0.63 MG/3 ML NEB INH PRN ×3 (08:05→19:20)
--- NOTE | 2018-02-18 09:27 | Consultation ---
DATE OF CONSULTATION: February 17, 2018 Mr. Siegel is a 52-year-old white male who has been referred to me for evaluation of colon cancer resection and ileostomy on February 15, 2018. SOCIAL HISTORY: Could not be obtained. FAMILY HISTORY: Could not be obtained. I have extensively spoken to the patient's , the father and the mother, and most of the history is review of the records of this patient. ALLERGIES: REPORTED NONE. MEDICATIONS: At this time, metronidazole, Zosyn, norepinephrine, hydromorphone, potassium, sodium chloride, morphine, thiamine, nicotine. REVIEW OF SYSTEMS HEENT: Normal. CARDIAC: Normal. RESPIRATORY: Normal. GI: Colon cancer with possible liver metastases. : The patient does have a Díaz catheter at this time. PHYSICAL EXAMINATION GENERAL: A rather large built male intubated. No palpable adenopathy. HEART: Tachycardic at 114. LUNGS: Coarse rales. ABDOMEN: Ileostomy. RECTAL: Could not be done. CENTRAL NERVOUS SYSTEM: Could not be done. LABS: Shows a hemoglobin of 9.4, hematocrit 26, white count 8600, platelets are 118,000. Sodium 134, potassium 3.5, chloride 108, CO2 22, BUN 16, creatinine 0.6. INR 1.17. Bilirubin 1.9, SGOT 27, SGPT 10, alkaline phosphatase 27. Albumin low at 3.2. Globulin is high at 4.5 CEA high at 84.2. IMPRESSION 1. Anemia of chronic disease. 2. Anemia of blood loss. 3. Hyponatremia (132). 4. High liver function tests (bilirubin 1.6). 5. Hypoalbuminemia (3.2). 6. Hyperglobulinemia (4.5). 7. High CEA (84.2). 8. Sigmoid colon cancer. 9. Possible liver metastases versus cirrhosis. 10. Status post colon resection. 11. Status post intubation. 12. Morbid obesity. PLAN, COMMENTS AND SUGGESTIONS: Await pathology. I certainly hope that the liver biopsy was done. I clinically think that this is liver metastases due to the high CEA seen with liver metastases. I have spoken to the family that if liver metastases, this is an incurable disease. Job#: [id number] RI cc:MJ LOVELL MD
[2018-02-18] MEDS: THIAMINE HCL INJ 100 MG/ML 2ML VIAL IV SCH (09:28)
[2018-02-18] MEDS: NICOTINE 21 MG/EA PATCH TOP SCH (09:28)
[2018-02-18] MEDS: METOPROLOL TARTRATE INJ 1 MG/ML VIAL IV SCH ×2 (09:28→19:51)
[2018-02-18] MEDS ORDERED: FUROSEMIDE INJ 10 MG/ML 4 ML VIAL IV NR (10:30)
--- NOTE | 2018-02-18 11:36 | Diagnostic Imaging Report ---
PROCEDURE:CHEST SINGLE (PORTABLE) TECHNIQUE:Supine AP abdomen INDICATION:Abdominal pain COMPARISON:Patients [facility], DX, CHEST SINGLE (PORTABLE), 02/16/2018, 5:03. Patients [facility], CT, CT ABDOMEN/PELVIS WO, 02/15/2018, 16:26. Patients [facility], DX, CHEST XRAY LINE PLACEMENT, 02/16/2018, 15:28. FINDINGS: See conclusion. CONCLUSION: 1. Endotracheal tube tip about 7 cm from the renata. 2. Nasogastric tube tip in the gastric body. 3. Persistent pneumoperitoneum relative to February 16. 4. Low lung volume with bibasilar atelectasis. Questionable small left pleural effusion. 5. Stable cardiomediastinal silhouette, with normal heart size and central vasculature. Dictated by: Anjum Coley M.D. on 02/18/2018 at 11:37 Electronically approved by: Anjum Coley M.D. on 02/18/2018 at 11:37
[2018-02-18] MEDS: ALTEPLASE RECOMBINANT 2 MG/2 ML VIAL IV PRN (12:50)
[2018-02-18 14:51] LABS: ABG HCO3 20 mmol/L (23-28); ABG PCO2 31 mmHg (41-51); ABG PH 7.42 (7.31-7.41); ABG PO2 127 mmHg (80-105)
[2018-02-18] MEDS ORDERED: LORAZEPAM INJ 2 MG/ML VIAL IV PRN (15:00)
[2018-02-18] MEDS: LORAZEPAM INJ 2 MG/ML VIAL IV PRN (18:46)
[2018-02-18] MEDS: ALBUTEROL/IPRATROPIUM 3 ML NEB NEB SCH ×2 (19:00→23:00)
[2018-02-18] MEDS: MORPHINE SULFATE 2 MG/ML SYR IV PRN (20:10)
[2018-02-18] MEDS ORDERED: MORPHINE SULFATE 2 MG/ML SYR ONE (20:14)
[2018-02-18] MEDS ORDERED: MORPHINE SULFATE 5 MG/ML VIAL IV PRN (20:15)
[2018-02-19] VITALS (36 sets, daily range): BP systolic 95–175; BP diastolic 55–116
[2018-02-19] MEDS: SODIUM CHLORIDE 0.9% 250ML IRRIG IR SCH ×5 (00:22→21:49)
[2018-02-19] MEDS: PIPER-TAZ 3.375 GM 50 ML IV SCH ×5 (00:22→23:39)
[2018-02-19] MEDS: MORPHINE SULFATE 2 MG/ML SYR IV PRN ×7 (00:23→20:42)
[2018-02-19] MEDS: METRONIDAZOLE 500MG/NS 100ML 100 ML IV SCH ×5 (00:45→23:38)
[2018-02-19] MEDS: LORAZEPAM INJ 2 MG/ML VIAL IV PRN ×2 (00:50→08:12)
[2018-02-19] MEDS: LEVALBUTEROL HCL SOLN NEBU 0.63 MG/3 ML NEB INH PRN ×2 (01:30→19:10)
[2018-02-19] MEDS: ALBUTEROL/IPRATROPIUM 3 ML NEB NEB SCH ×6 (02:51→23:00)
[2018-02-19] MEDS ORDERED: METOPROLOL TARTRATE INJ 1 MG/ML VIAL IV ONE (03:30)
[2018-02-19] MEDS: METOPROLOL TARTRATE INJ 1 MG/ML VIAL IV SCH ×4 (05:39→23:38)
[2018-02-19 06:17] LABS: BASOPHILS % 0.2 % (0.0-1.0); EOSINOPHILS % 0.2 % (0.0-6.0); HEMATOCRIT 27.1 % (38.2-49.6); HEMOGLOBIN 9.8 g/dL (14.0-18.0); LYMPHOCYTES # (AUTO) 0.9 (1.0-3.2); LYMPHOCYTES % 6.9 % (18.0-39.1); MEAN CORPUSCULAR HEMOGLOBIN 36.7 pg (28-32); MEAN CORPUSCULAR HGB CONC 36.2 g/dL (31-35); MEAN CORPUSCULAR VOLUME 101.5 fL (81-99); MONOCYTES # (AUTO) 1.2 (0.2-0.8); MONOCYTES % 9.3 % (4.4-11.3); NEUTROPHILS # (AUTO) 10.7 (2.1-6.9); NEUTROPHILS % 82.4 % (38.7-80.0); PLATELET COUNT 161 x10e3/uL (140-360); RED BLOOD COUNT 2.67 x10e6/uL (4.3-5.7); RED CELL DISTRIBUTION WIDTH 18.2 % (11.7-14.4)
[2018-02-19 06:54] LABS: ALANINE AMINOTRANSFERASE 16 IU/L (0-55); ALBUMIN 1.7 g/dL (3.5-5.0); ALBUMIN/GLOBULIN RATIO 0.6 (0.8-2.0); ALKALINE PHOSPHATASE 65 IU/L (40-150); ANION GAP 11.2 mmol/L (8-16); BLOOD UREA NITROGEN 13 mg/dL (7-26); BUN/CREATININE RATIO 21 (6-25); CARBON DIOXIDE 23 mmol/L (22-29); CHLORIDE 109 mmol/L (98-107); CREATININE, SERUM 0.62 mg/dL (0.72-1.25); EST GLOMERULAR FILTRATION RATE > 60 ML/MIN (60-); GLUCOSE 91 mg/dL (74-118); MAGNESIUM 1.8 MG/DL (1.3-2.1); POTASSIUM 3.2 mmol/L (3.5-5.1); SODIUM 140 mmol/L (136-145)
[2018-02-19] MEDS: SODIUM CHLORIDE 0.9% 1000ML 1,000 ML IV SCH (07:20)
[2018-02-19] MEDS: NICOTINE 21 MG/EA PATCH TOP SCH (08:12)
[2018-02-19] MEDS: THIAMINE HCL INJ 100 MG/ML 2ML VIAL IV SCH (08:12)
[2018-02-19] MEDS ORDERED: POTASSIUM CHLORIDE 20MEQ/100ML 100 ML IV PRN (08:30)
[2018-02-19] MEDS ORDERED: LORAZEPAM INJ 2 MG/ML VIAL IV PRN (08:30)
[2018-02-19] MEDS: SOD CHL 0.45%/POT CHL 20MEQ 1,000 ML IV SCH (10:56)
[2018-02-19] MEDS ORDERED: POTASSIUM CHLORIDE 20MEQ/100ML 100 ML IV ONE (11:00)
[2018-02-19] MEDS ORDERED: CENTRAL TPN FORMULA 1 BAG IV SCH (20:00)
[2018-02-20] VITALS (7 sets, daily range): BP systolic 147–158; BP diastolic 92–103
[2018-02-20] MEDS: MORPHINE SULFATE 2 MG/ML SYR IV PRN ×3 (00:55→20:04)
[2018-02-20] MEDS: SOD CHL 0.45%/POT CHL 20MEQ 1,000 ML IV SCH ×2 (01:30→14:11)
[2018-02-20] MEDS: SODIUM CHLORIDE 0.9% 250ML IRRIG IR SCH ×6 (01:58→21:17)
[2018-02-20] MEDS: ALBUTEROL/IPRATROPIUM 3 ML NEB NEB SCH ×3 (03:00→23:00)
[2018-02-20] MEDS: METRONIDAZOLE 500MG/NS 100ML 100 ML IV SCH ×4 (05:54→23:53)
[2018-02-20] MEDS: PIPER-TAZ 3.375 GM 50 ML IV SCH ×4 (05:55→23:54)
[2018-02-20] MEDS: METOPROLOL TARTRATE INJ 1 MG/ML VIAL IV SCH ×4 (05:55→23:54)
[2018-02-20] MEDS ORDERED: DIATRIZOATE MEGL/DIATRIZOA SOD 30 ML BTL PO ONE (08:20)
[2018-02-20 09:02] LABS: BASOPHILS % 0.2 % (0.0-1.0); EOSINOPHILS # (AUTO) 0.1 (0.0-0.4); EOSINOPHILS % 0.5 % (0.0-6.0); HEMATOCRIT 28.4 % (38.2-49.6); HEMOGLOBIN 10.1 g/dL (14.0-18.0); LYMPHOCYTES # (AUTO) 0.7 (1.0-3.2); LYMPHOCYTES % 5.1 % (18.0-39.1); MEAN CORPUSCULAR HEMOGLOBIN 36.2 pg (28-32); MEAN CORPUSCULAR HGB CONC 35.6 g/dL (31-35); MEAN CORPUSCULAR VOLUME 101.8 fL (81-99); MONOCYTES % 7.7 % (4.4-11.3); NEUTROPHILS # (AUTO) 11.5 (2.1-6.9); NEUTROPHILS % 85.4 % (38.7-80.0); PLATELET COUNT 167 x10e3/uL (140-360); RED BLOOD COUNT 2.79 x10e6/uL (4.3-5.7); RED CELL DISTRIBUTION WIDTH 17.9 % (11.7-14.4)
[2018-02-20 09:19] LABS: ALANINE AMINOTRANSFERASE 16 IU/L (0-55); ALBUMIN 1.6 g/dL (3.5-5.0); ALBUMIN/GLOBULIN RATIO 0.5 (0.8-2.0); ALKALINE PHOSPHATASE 60 IU/L (40-150); ANION GAP 9.5 mmol/L (8-16); BLOOD UREA NITROGEN 9 mg/dL (7-26); BUN/CREATININE RATIO 17 (6-25); CALCIUM 7.8 mg/dL (8.4-10.2); CARBON DIOXIDE 24 mmol/L (22-29); CHLORIDE 111 mmol/L (98-107); CREATININE, SERUM 0.53 mg/dL (0.72-1.25); EST GLOMERULAR FILTRATION RATE > 60 ML/MIN (60-); GLUCOSE 131 mg/dL (74-118); POTASSIUM 3.5 mmol/L (3.5-5.1); SODIUM 141 mmol/L (136-145)
[2018-02-20] MEDS ORDERED: METOCLOPRAMIDE HCL 10 MG/2ML VIAL IV ONE (10:00)
[2018-02-20] MEDS ORDERED: POTASSIUM CHLORIDE 20MEQ/100ML 200 ML IV ONE (10:00)
[2018-02-20] MEDS: NICOTINE 21 MG/EA PATCH TOP SCH (10:12)
--- NOTE | 2018-02-20 11:22 | Diagnostic Imaging Report ---
PROCEDURE: CT ABDOMEN AND PELVIS WITH CONTRAST TECHNIQUE: The abdomen and pelvis were scanned utilizing a multidetector helical scanner from the diaphragm to the lesser trochanter after the IV administration of 100 cc of Isovue 370 and the oral administration of Gastroview. Coronal and sagittal multiplanar reformations were obtained. COMPARISON: CT abdomen and pelvis 02/15/2018. INDICATIONS: ASSESS COLOSTOMY FINDINGS: LOWER THORAX: Small bilateral pleural effusions with adjacent compression atelectasis. HEPATOBILIARY: Multiple hypodense lesions are present in the liver. No biliary ductal dilatation. Vicarious excretion of contrast within the gallbladder. No gallbladder distention. SPLEEN: No splenomegaly. PANCREAS: No focal masses or ductal dilatation. ADRENALS: No adrenal nodules. KIDNEYS/URETERS: No hydronephrosis, stones, or solid mass lesions. PELVIC ORGANS/BLADDER: Unremarkable. PERITONEUM / RETROPERITONEUM: Moderate amount of free fluid is present in the abdomen, concentrated in the right upper quadrant, the bilateral paracolic gutters, and in the pelvis. No peripherally enhancing fluid collection. Moderate pneumoperitoneum is present in the right upper quadrant. Median laparotomy skin incision meghan. The fascia is intact. LYMPH NODES: No lymphadenopathy. VESSELS: Unremarkable. GI TRACT: Postoperative changes of subtotal colectomy. Rectal stump is noted in the lower pelvis, and series 2 image 91. End ileostomy is noted with the ostomy in the right lower quadrant, series 2 image 74. Multiple fluid filled loops of nondilated small bowel. No air-fluid levels. No bowel wall thickening. The stomach is normal. Enteric feeding catheter is present with the tip positioned within the gastric mid body. BONES AND SOFT TISSUES: Unremarkable. IMPRESSION: Postoperative changes of subtotal colectomy and right lower quadrant and ileostomy. No evidence of obstruction. Free fluid and pneumoperitoneum likely postoperative. No evidence of abscess formation. Hypodense lesions in the liver likely represent metastatic disease. Dictated by: Aodlph Serra M.D. on 02/20/2018 at 11:23 Electronically approved by: Adolph Serra M.D. on 02/20/2018 at 11:23
[2018-02-20] MEDS: ONDANSETRON HCL INJ 2 MG/ML VIAL IV PRN ×2 (12:30→20:04)
[2018-02-20] MEDS ORDERED: SODIUM CHLORIDE 0.9% 50ML 50 ML ONE (15:12)
[2018-02-20] MEDS ORDERED: IOPAMIDOL 370 MG/ML 200 ML INFUS..BTL INJ ONE (15:12)
[2018-02-20] MEDS ORDERED: METOCLOPRAMIDE HCL 10 MG/2ML VIAL IV SCH (18:00)
[2018-02-20] MEDS: METOCLOPRAMIDE HCL 10 MG/2ML VIAL IV SCH ×2 (18:21→23:54)
[2018-02-20] MEDS: LEVALBUTEROL HCL SOLN NEBU 0.63 MG/3 ML NEB INH PRN (18:40)
[2018-02-20] MEDS ORDERED: CENTRAL TPN FORMULA 1 BAG IV SCH (20:00)
[2018-02-20] MEDS: SODIUM CHLORIDE 0.9% 1000ML 1,000 ML IV SCH (21:30)
[2018-02-20] MEDS ORDERED: LORAZEPAM INJ 2 MG/ML VIAL IV PRN (22:00)
[2018-02-21] VITALS (9 sets, daily range): BP systolic 123–159; BP diastolic 84–106
[2018-02-21] MEDS: LEVALBUTEROL HCL SOLN NEBU 0.63 MG/3 ML NEB INH PRN ×3 (01:35→19:40)
[2018-02-21] MEDS: MORPHINE SULFATE 2 MG/ML SYR IV PRN (01:42)
[2018-02-21] MEDS: ALBUTEROL/IPRATROPIUM 3 ML NEB NEB SCH ×6 (02:56→23:55)
[2018-02-21] MEDS: SODIUM CHLORIDE 0.9% 250ML IRRIG IR SCH ×7 (02:59→21:44)
[2018-02-21] MEDS: SOD CHL 0.45%/POT CHL 20MEQ 1,000 ML IV SCH ×2 (03:43→23:50)
[2018-02-21] MEDS: METOCLOPRAMIDE HCL 10 MG/2ML VIAL IV SCH ×4 (05:37→23:49)
[2018-02-21] MEDS: METRONIDAZOLE 500MG/NS 100ML 100 ML IV SCH ×4 (05:37→23:49)
[2018-02-21] MEDS: PIPER-TAZ 3.375 GM 50 ML IV SCH ×4 (05:37→23:49)
[2018-02-21] MEDS: METOPROLOL TARTRATE INJ 1 MG/ML VIAL IV SCH ×4 (05:37→23:49)
[2018-02-21 05:58] LABS: BASOPHILS # (AUTO) 0.1 (0.0-0.1); BASOPHILS % 0.4 % (0.0-1.0); EOSINOPHILS # (AUTO) 0.1 (0.0-0.4); HEMATOCRIT 29.7 % (38.2-49.6); HEMOGLOBIN 10.2 g/dL (14.0-18.0); LYMPHOCYTES % 7.1 % (18.0-39.1); MEAN CORPUSCULAR HEMOGLOBIN 35.2 pg (28-32); MEAN CORPUSCULAR HGB CONC 34.3 g/dL (31-35); MEAN CORPUSCULAR VOLUME 102.4 fL (81-99); MONOCYTES # (AUTO) 1.3 (0.2-0.8); MONOCYTES % 9.5 % (4.4-11.3); NEUTROPHILS % 80.6 % (38.7-80.0); PLATELET COUNT 178 x10e3/uL (140-360); RED CELL DISTRIBUTION WIDTH 17.7 % (11.7-14.4)
[2018-02-21 06:25] LABS: ALANINE AMINOTRANSFERASE 19 IU/L (0-55); ALBUMIN 1.6 g/dL (3.5-5.0); ALBUMIN/GLOBULIN RATIO 0.5 (0.8-2.0); ALKALINE PHOSPHATASE 71 IU/L (40-150); ANION GAP 6.7 mmol/L (8-16); BLOOD UREA NITROGEN 9 mg/dL (7-26); BUN/CREATININE RATIO 16 (6-25); CARBON DIOXIDE 25 mmol/L (22-29); CHLORIDE 109 mmol/L (98-107); CREATININE, SERUM 0.55 mg/dL (0.72-1.25); EST GLOMERULAR FILTRATION RATE > 60 ML/MIN (60-); GLUCOSE 127 mg/dL (74-118); POTASSIUM 3.7 mmol/L (3.5-5.1); SODIUM 137 mmol/L (136-145)
[2018-02-21] MEDS ORDERED: MORPHINE SULFATE 2 MG/ML SYR IV PRN (07:30)
[2018-02-21] MEDS: SODIUM CHLORIDE 0.9% 1000ML 1,000 ML IV SCH (07:48)
[2018-02-21] MEDS: NICOTINE 21 MG/EA PATCH TOP SCH (09:45)
[2018-02-21] MEDS ORDERED: CENTRAL TPN FORMULA 1 BAG IV SCH ×2 (12:43→20:00)
[2018-02-21] MEDS ORDERED: POTASSIUM CHLORIDE 20MEQ/100ML 100 ML IV ONE (12:45)
[2018-02-21] MEDS ORDERED: BISACODYL 10 MG SUPP PR ONE (13:15)
[2018-02-21] MEDS ORDERED: METOPROLOL TARTRATE INJ 1 MG/ML VIAL IV ONE (16:00)
[2018-02-21] MEDS: HYDROMORPHONE 1MG/1ML INJ IV PRN ×2 (16:01→22:58)
[2018-02-21] MEDS: ONDANSETRON HCL INJ 2 MG/ML VIAL IV PRN (16:01)
[2018-02-21] MEDS: CLONIDINE HCL 0.1 MG/24 HR 1 EA PATCH TOP SCH (16:02)
[2018-02-22] VITALS (8 sets, daily range): BP systolic 140–175; BP diastolic 93–106
[2018-02-22] MEDS: SODIUM CHLORIDE 0.9% 250ML IRRIG IR SCH ×6 (01:15→22:28)
[2018-02-22] MEDS: METOCLOPRAMIDE HCL 10 MG/2ML VIAL IV SCH ×3 (05:35→18:53)
[2018-02-22] MEDS: METOPROLOL TARTRATE INJ 1 MG/ML VIAL IV SCH ×3 (05:35→18:52)
[2018-02-22] MEDS: METRONIDAZOLE 500MG/NS 100ML 100 ML IV SCH ×2 (05:35→12:30)
[2018-02-22 06:20] LABS: BASOPHILS % 0.4 % (0.0-1.0); EOSINOPHILS # (AUTO) 0.2 (0.0-0.4); EOSINOPHILS % 1.8 % (0.0-6.0); HEMATOCRIT 30.4 % (38.2-49.6); HEMOGLOBIN 10.4 g/dL (14.0-18.0); LYMPHOCYTES # (AUTO) 1.1 (1.0-3.2); MEAN CORPUSCULAR HEMOGLOBIN 35.6 pg (28-32); MEAN CORPUSCULAR HGB CONC 34.2 g/dL (31-35); MEAN CORPUSCULAR VOLUME 104.1 fL (81-99); MONOCYTES # (AUTO) 1.2 (0.2-0.8); MONOCYTES % 10.4 % (4.4-11.3); NEUTROPHILS # (AUTO) 8.5 (2.1-6.9); PLATELET COUNT 178 x10e3/uL (140-360); RED BLOOD COUNT 2.92 x10e6/uL (4.3-5.7); RED CELL DISTRIBUTION WIDTH 17.3 % (11.7-14.4)
[2018-02-22] MEDS: HYDROMORPHONE 1MG/1ML INJ IV PRN ×4 (06:25→22:30)
[2018-02-22] MEDS: PIPER-TAZ 3.375 GM 50 ML IV SCH ×2 (06:36→12:04)
[2018-02-22] MEDS: ALBUTEROL/IPRATROPIUM 3 ML NEB NEB SCH ×5 (06:43→23:00)
[2018-02-22 06:46] LABS: ALANINE AMINOTRANSFERASE 18 IU/L (0-55); ALBUMIN 1.6 g/dL (3.5-5.0); ALBUMIN/GLOBULIN RATIO 0.4 (0.8-2.0); ALKALINE PHOSPHATASE 69 IU/L (40-150); ANION GAP 8.1 mmol/L (8-16); BLOOD UREA NITROGEN 12 mg/dL (7-26); BUN/CREATININE RATIO 24 (6-25); CALCIUM 8.1 mg/dL (8.4-10.2); CARBON DIOXIDE 24 mmol/L (22-29); CHLORIDE 106 mmol/L (98-107); CREATININE, SERUM 0.51 mg/dL (0.72-1.25); EST GLOMERULAR FILTRATION RATE > 60 ML/MIN (60-); GLUCOSE 137 mg/dL (74-118); POTASSIUM 4.1 mmol/L (3.5-5.1); SODIUM 134 mmol/L (136-145)
[2018-02-22] MEDS: NICOTINE 21 MG/EA PATCH TOP SCH (10:22)
[2018-02-22] MEDS ORDERED: CENTRAL TPN FORMULA 1 BAG IV SCH ×2 (11:17→20:00)
[2018-02-22] MEDS ORDERED: CENTRAL TPN FORMULA IV SCH (20:00)
[2018-02-23] VITALS (14 sets, daily range): BP systolic 134–180; BP diastolic 91–119
[2018-02-23] MEDS: METOCLOPRAMIDE HCL 10 MG/2ML VIAL IV SCH ×4 (00:14→17:26)
[2018-02-23] MEDS: METOPROLOL TARTRATE INJ 1 MG/ML VIAL IV SCH ×5 (00:14→23:24)
[2018-02-23] MEDS: SODIUM CHLORIDE 0.9% 250ML IRRIG IR SCH ×4 (01:30→12:17)
[2018-02-23] MEDS: ALBUTEROL/IPRATROPIUM 3 ML NEB NEB SCH ×6 (03:00→22:41)
[2018-02-23] MEDS: HYDROMORPHONE 1MG/1ML INJ IV PRN ×3 (04:06→16:26)
[2018-02-23 08:29] LABS: BASOPHILS # (AUTO) 0.1 (0.0-0.1); BASOPHILS % 0.4 % (0.0-1.0); EOSINOPHILS # (AUTO) 0.2 (0.0-0.4); EOSINOPHILS % 1.2 % (0.0-6.0); HEMATOCRIT 33.9 % (38.2-49.6); HEMOGLOBIN 11.7 g/dL (14.0-18.0); LYMPHOCYTES # (AUTO) 1.3 (1.0-3.2); LYMPHOCYTES % 9.8 % (18.0-39.1); MEAN CORPUSCULAR HEMOGLOBIN 35.8 pg (28-32); MEAN CORPUSCULAR HGB CONC 34.5 g/dL (31-35); MEAN CORPUSCULAR VOLUME 103.7 fL (81-99); MONOCYTES # (AUTO) 1.1 (0.2-0.8); NEUTROPHILS # (AUTO) 10.8 (2.1-6.9); NEUTROPHILS % 79.6 % (38.7-80.0); PLATELET COUNT 241 x10e3/uL (140-360); RED BLOOD COUNT 3.27 x10e6/uL (4.3-5.7); RED CELL DISTRIBUTION WIDTH 17.2 % (11.7-14.4)
[2018-02-23 08:51] LABS: ALANINE AMINOTRANSFERASE 21 IU/L (0-55); ALBUMIN 1.7 g/dL (3.5-5.0); ALBUMIN/GLOBULIN RATIO 0.4 (0.8-2.0); ALKALINE PHOSPHATASE 98 IU/L (40-150); ANION GAP 8.2 mmol/L (8-16); BLOOD UREA NITROGEN 14 mg/dL (7-26); BUN/CREATININE RATIO 26 (6-25); CALCIUM 8.4 mg/dL (8.4-10.2); CARBON DIOXIDE 25 mmol/L (22-29); CHLORIDE 104 mmol/L (98-107); CREATININE, SERUM 0.54 mg/dL (0.72-1.25); EST GLOMERULAR FILTRATION RATE > 60 ML/MIN (60-); GLUCOSE 121 mg/dL (74-118); POTASSIUM 4.2 mmol/L (3.5-5.1); SODIUM 133 mmol/L (136-145)
[2018-02-23] MEDS: NICOTINE 21 MG/EA PATCH TOP SCH (09:26)
[2018-02-23] MEDS ORDERED: FUROSEMIDE INJ 10 MG/ML 4 ML VIAL IV SCH (11:45)
[2018-02-23] MEDS: HYDROCODONE/APAP 7.5MG-325MG 1 EA TAB PO PRN ×2 (14:16→18:22)
[2018-02-23] MEDS: LORAZEPAM INJ 2 MG/ML VIAL IV PRN (17:26)
[2018-02-23] MEDS ORDERED: FUROSEMIDE INJ 10 MG/ML 2 ML VIAL IV SCH (18:30)
[2018-02-23] MEDS ORDERED: CENTRAL TPN FORMULA IV SCH (20:00)
[2018-02-23] MEDS ORDERED: FUROSEMIDE INJ 10 MG/ML 4 ML VIAL ONE (23:26)
[2018-02-24] VITALS (7 sets, daily range): BP systolic 128–157; BP diastolic 90–111
[2018-02-24] MEDS: ALBUTEROL/IPRATROPIUM 3 ML NEB NEB SCH ×6 (03:00→22:50)
[2018-02-24] MEDS: HYDROCODONE/APAP 7.5MG-325MG 1 EA TAB PO PRN ×2 (05:20→18:01)
[2018-02-24] MEDS: LORAZEPAM INJ 2 MG/ML VIAL IV PRN ×2 (05:20→23:54)
[2018-02-24] MEDS: METOPROLOL TARTRATE INJ 1 MG/ML VIAL IV SCH ×3 (05:41→18:01)
[2018-02-24 06:58] LABS: BASOPHILS # (AUTO) 0.1 (0.0-0.1); BASOPHILS % 0.4 % (0.0-1.0); EOSINOPHILS # (AUTO) 0.1 (0.0-0.4); HEMATOCRIT 28.4 % (38.2-49.6); LYMPHOCYTES # (AUTO) 1.1 (1.0-3.2); LYMPHOCYTES % 8.8 % (18.0-39.1); MEAN CORPUSCULAR HEMOGLOBIN 36.7 pg (28-32); MEAN CORPUSCULAR HGB CONC 33.1 g/dL (31-35); MEAN CORPUSCULAR VOLUME 110.9 fL (81-99); MONOCYTES # (AUTO) 1.2 (0.2-0.8); MONOCYTES % 9.5 % (4.4-11.3); NEUTROPHILS # (AUTO) 10.3 (2.1-6.9); NEUTROPHILS % 79.1 % (38.7-80.0); PLATELET COUNT 236 x10e3/uL (140-360); RED BLOOD COUNT 2.56 x10e6/uL (4.3-5.7); RED CELL DISTRIBUTION WIDTH 17.9 % (11.7-14.4)
[2018-02-24 07:22] LABS: HEMOGLOBIN 9.4 g/dL (14.0-18.0)
[2018-02-24] MEDS: NICOTINE 21 MG/EA PATCH TOP SCH (09:31)
[2018-02-24 10:30] LABS: ALANINE AMINOTRANSFERASE 23 IU/L (0-55); ALBUMIN 1.7 g/dL (3.5-5.0); ALBUMIN/GLOBULIN RATIO 0.4 (0.8-2.0); ALKALINE PHOSPHATASE 133 IU/L (40-150); ANION GAP 10.4 mmol/L (8-16); BLOOD UREA NITROGEN 15 mg/dL (7-26); BUN/CREATININE RATIO 29 (6-25); CALCIUM 8.2 mg/dL (8.4-10.2); CARBON DIOXIDE 23 mmol/L (22-29); CHLORIDE 103 mmol/L (98-107); CREATININE, SERUM 0.52 mg/dL (0.72-1.25); EST GLOMERULAR FILTRATION RATE > 60 ML/MIN (60-); GLUCOSE 119 mg/dL (74-118); POTASSIUM 4.4 mmol/L (3.5-5.1); SODIUM 132 mmol/L (136-145)
[2018-02-24] MEDS ORDERED: CENTRAL TPN FORMULA 1 BAG IV SCH (20:00)
[2018-02-25] VITALS (8 sets, daily range): BP systolic 133–179; BP diastolic 89–102
[2018-02-25] MEDS: METOPROLOL TARTRATE INJ 1 MG/ML VIAL IV SCH ×4 (00:13→17:07)
[2018-02-25] MEDS: ALBUTEROL/IPRATROPIUM 3 ML NEB NEB SCH ×5 (03:00→23:00)
[2018-02-25] MEDS: NICOTINE 21 MG/EA PATCH TOP SCH (08:34)
[2018-02-25] MEDS: ALTEPLASE RECOMBINANT 2 MG/2 ML VIAL IV PRN (08:35)
[2018-02-25] MEDS: HYDROCODONE/APAP 7.5MG-325MG 1 EA TAB PO PRN ×2 (13:18→21:22)
[2018-02-25] MEDS: LORAZEPAM INJ 2 MG/ML VIAL IV PRN (16:13)
[2018-02-25] MEDS: CENTRAL TPN FORMULA 1 BAG IV SCH (20:00)
[2018-02-26 00:10] VITALS: BP 154/94
[2018-02-26] MEDS: METOPROLOL TARTRATE INJ 1 MG/ML VIAL IV SCH ×5 (00:53→23:00)
[2018-02-26] MEDS: ALBUTEROL/IPRATROPIUM 3 ML NEB NEB SCH ×6 (02:31→23:00)
[2018-02-26 05:20] VITALS: BP 166/99
[2018-02-26 09:01] VITALS: BP 152/92
[2018-02-26] MEDS: NICOTINE 21 MG/EA PATCH TOP SCH (10:00)
[2018-02-26] MEDS: HYDROCODONE/APAP 7.5MG-325MG 1 EA TAB PO PRN ×2 (10:11→18:10)
[2018-02-26] MEDS: CENTRAL TPN FORMULA 1 BAG IV SCH ×2 (11:21→15:53)
[2018-02-26 12:14] VITALS: BP 139/88
--- NOTE | 2018-02-26 13:18 | Consultation ---
DATE OF CONSULTATION: February 26, 2018 REFERRING PHYSICIAN: Dr. Gaurav Sow. I would like to thank Dr. Sow for asking me to see Mr. Siegel in consultation. REASON FOR CONSULTATION: 1. Debilitated state secondary to colon resection status post colectomy with colostomy. 2. History of ETOH abuse. 3. Tobacco abuse. HISTORY: Mainly from the workup inside the chart, and from the patient as well. Mr. Siegel has an unfortunate 52-year-old man who was diagnosed with colon cancer, underwent colon resection and has colostomy. Right now he has been having some trouble with mobilizing, getting around. He continues on his TPN for right now but will eventually be switched over to p.o. He is getting strong, getting better but he is still not anywhere close to baseline level of function. In addition to that we are dealing with the abdominal wound as well as the new colostomy. I am being asked to evaluate for rehab needs. PAST MEDICAL HISTORY: Recent diagnosis of colon cancer. SURGERIES: As above. SOCIAL HISTORY: Lives with his in a 2-story home but bedroom is downstairs. Was otherwise independent, working as an metal machinist. HABITS: Smokes a pack of cigarettes a day for years, he could not quantify. ETOH, he says he drinks about half a gallon of spirits a week. FAMILY HISTORY: Denies. He says there is nobody with a history of cancer in his family that he is aware of. CONSTITUTIONAL REVIEW OF SYSTEMS: An 11-point reviewed. Sixteen-point review of systems except for the above. LABS: White cell count 13.01, hemoglobin 9.4, hematocrit 28.4, platelets of 236, INR 1.17. He had a Doppler of the lower extremities a few days ago which was negative for DVT. PHYSICAL EXAMINATION GENERAL: Patient is awake and alert. He is receiving a breathing treatment. EYES: Gaze is conjugate. ORAL: Tongue is midline. NECK: Supple. HEART: Regular. LUNGS: Diminished breath sounds. ABDOMEN: Colostomy is in place and functioning. He has abdominal dressing for his abdominal incision. EXTREMITIES: Full range of motion arms. Functional range of motion to legs. NEUROLOGIC: Sensory-lópez he denies any new-onset numbness or tingling, hands, feet, or face. MANUAL MUSCLE TESTING: Pretty much 5/5 strength in the upper extremities bilaterally. He had a little bit of guarding with hip flexion and extension due to his abdominal surgery but leg strength is actually pretty good at 4+/5 strength. Gait-lópez, he ambulates to the door and back with assistance. Again he says he does not feel very steady on his feet. IMPRESSION 1. Status post colectomy secondary to colon cancer with colostomy. 2. Alcohol abuse. 3. Tobacco abuse. PLAN: He plans has planned stopping smoking and drinking. He does have a history of alcohol abuse. He would be a good candidate for inpatient rehab to build up his strength and his endurance prior to discharge to home. Will follow along with you. Thank you once again for allowing me to participate in the care of this pleasant but unfortunate patient. Job#: [id number] KINJAL
[2018-02-26 17:45] VITALS: BP 158/93
[2018-02-26 20:00] VITALS: BP 140/87
[2018-02-26] MEDS: LORAZEPAM INJ 2 MG/ML VIAL IV PRN (22:06)
[2018-02-27] VITALS (7 sets, daily range): BP systolic 128–158; BP diastolic 74–89
[2018-02-27] MEDS: ALBUTEROL/IPRATROPIUM 3 ML NEB NEB SCH (03:40)
[2018-02-27] MEDS: METOPROLOL TARTRATE INJ 1 MG/ML VIAL IV SCH ×3 (06:51→18:40)
[2018-02-27] MEDS ORDERED: NICOTINE 21 MG/EA PATCH TOP SCH (09:00)
[2018-02-27] MEDS: NICOTINE 14 MG/EA PATCH TOP SCH (09:32)
[2018-02-27] MEDS: IPRATROPIUM BROMIDE 0.02% 2.5 ML NEB NEB SCH ×2 (11:48→19:35)
[2018-02-27] MEDS: HYDROCODONE/APAP 7.5MG-325MG 1 EA TAB PO PRN ×2 (14:47→22:58)
[2018-02-27] MEDS: LORAZEPAM INJ 2 MG/ML VIAL IV PRN (15:56)
[2018-02-28] VITALS: BP 143/82
[2018-02-28] MEDS: IPRATROPIUM BROMIDE 0.02% 2.5 ML NEB NEB SCH ×2 (01:00→07:19)
[2018-02-28] MEDS: METOPROLOL TARTRATE INJ 1 MG/ML VIAL IV SCH ×4 (01:30→16:17)
[2018-02-28 04:00] VITALS: BP 131/89
[2018-02-28] MEDS ORDERED: HYDROCODONE/APAP 7.5MG-325MG 1 EA TAB PO PRN (07:15)
[2018-02-28] MEDS: LEVALBUTEROL HCL SOLN NEBU 0.63 MG/3 ML NEB INH PRN (07:19)
[2018-02-28 07:53] VITALS: BP 155/89
[2018-02-28] MEDS: NICOTINE 14 MG/EA PATCH TOP SCH (08:10)
[2018-02-28 10:19] VITALS: BP 155/89
[2018-02-28 11:54] VITALS: BP 152/97
[2018-02-28 16:13] VITALS: BP 142/81
[2018-02-28] MEDS: CLONIDINE HCL 0.1 MG/24 HR 1 EA PATCH TOP SCH (16:16)
[2018-02-28] MEDS ORDERED: ULTRAM50 MG PO (16:21)
[2018-02-28] MEDS ORDERED: METOPROLOL TART50 MG PO (16:21)
== END 2018-02-28 16:46 | disposition home health service (06) | DRG 329 ==
LOC: ER 11:20 → ERHOLD 16:31 → MED/SURG2 18:22 → ICU 02-15 22:39 → IMCU 02-19 12:29 → MED/SURG 02-25 10:02
PROC: 0DJD8ZZ Inspection of Lower Intestinal Tract, Via Natural or Artificial Opening Endoscopic (ICD-10-PCS; 2018-02-14)
PROC: 0D1B0Z4 Bypass Ileum to Cutaneous, Open Approach (ICD-10-PCS; principal; 2018-02-15 18:09)
PROC: 0DTN0ZZ Resection of Sigmoid Colon, Open Approach (ICD-10-PCS; principal; 2018-02-15 18:09)
PROC: 0BH17EZ Insertion of Endotracheal Airway into Trachea, Via Natural or Artificial Opening (ICD-10-PCS; 2018-02-16)
PROC: 5A1955Z Respiratory Ventilation, Greater than 96 Consecutive Hours (ICD-10-PCS; 2018-02-16)
PROC: 02HV33Z Insertion of Infusion Device into Superior Vena Cava, Percutaneous Approach (ICD-10-PCS; 2018-02-16)
PROC: B5181ZA Fluoroscopy of Superior Vena Cava using Low Osmolar Contrast, Guidance (ICD-10-PCS; 2018-02-16)
PROC: 30243N1 Transfusion of Nonautologous Red Blood Cells into Central Vein, Percutaneous Approach (ICD-10-PCS; 2018-02-17)
DX: C18.7 Malignant neoplasm of sigmoid colon (principal); J95.821 Acute postprocedural respiratory failure; C79.9 Secondary malignant neoplasm of unspecified site; C78.7 Secondary malignant neoplasm of liver and intrahepatic bile duct; K75.9 Inflammatory liver disease, unspecified; E87.1 Hypo-osmolality and hyponatremia; E66.01 Morbid (severe) obesity due to excess calories; E88.09 Other disorders of plasma-protein metabolism, not elsewhere classified; F10.20 Alcohol dependence, uncomplicated; B19.20 Unspecified viral hepatitis C without hepatic coma; K63.89 Other specified diseases of intestine; F17.210 Nicotine dependence, cigarettes, uncomplicated; Z68.29 Body mass index [BMI] 29.0-29.9, adult; K64.8 Other hemorrhoids; R53.81 Other malaise; R77.1 Abnormality of globulin; D50.0 Iron deficiency anemia secondary to blood loss (chronic); R63.4 Abnormal weight loss
CPT/HCPCS: 36415; 36569; 36600; 45330; 71045; 71046; 74176; 74177; 76700; 80048; 80053; 81001; 82105; 82150; 82378; 82550; 82553; 82805; 82948; 83690; 83735; 84100; 84484; 85025; 85610; 85730; 86301; 86850; 86900; 86920; 88305; 88309; 88342; 93005; 93970; 94002; 94003; 94640; 94660; 96361; 96366; 96367; 96372; 96375; 97139; 97605; 99285; J0360; J1170; J1200; J1610; J1940; J2001; J2060; J2250; J2270; J2370; J2405; J2543; J2765; J2997; J3411; J3480; J7030; J7050; J7120; P9016; P9047; Q9967

== ENCOUNTER 2018-03-17 13:26 | Observation (INO) | payer BC ==
[~2018-03-17] VITALS: Ht 177.8 cm; Wt 75.4 kg
[~2018-03-17 13:26] MED LIST: METOPROLOL TART50 MG PO; ULTRAM50 MG PO
--- OUTSIDE RECORDS SUMMARY | 2018-03-17 13:28 | XMS REPORT | Continuity of Care Document ---
Author Author [facility] Organization [facility] Address [address] [place] [address] Phone Unavailable Care Team Providers Care Elevator Mechanic Apprentice Name Role Phone ISABELA MYERS MD PCP Insurance Providers Guarantor Idris Bates Address [address] [place] [address] Email NONE [facility]ayer [facility] Policy Number [id number] Subscriber's Name Idris Bates Relationship 18 Self / Same As Patient Group Number [id number] Group Name TeamSupport Effective Date 04/14/12 Advance Directives Directive Response Recorded Date/Time Does the patient have an advance directive? No 02/12/18 8:24pm If yes, is advance directive on file with [facility]? No 02/12/18 8:24pm If not on file with [facility] will patient provide a copy? No 02/12/18 8:24pm Do you have a Directive to Physician? No 02/12/18 12:32pm Do you have a Medical Power of Unix Analyst? No 02/12/18 12:32pm Do you have an out of hospital Do Not Resuscitate Order? No 02/12/18 12:32pm Do you have any special needs we should be aware of? No 02/12/18 12:32pm Do you have a support person here with you today? No 02/12/18 12:32pm Did patient receive Notice of Privacy Practices? Yes 02/12/18 12:32pm Did patient receive patient rights and responsibilities? Yes 02/12/18 12:32pm Problems Medical Problem Onset Date Status Abdominal neoplasm without bowel obstruction Unknown Abdominal pain Unknown Medications Current Home Medications Medication Dose Units Route Directions Days Qty Instructions Start Date Metoprolol Tartrate 50 Mg Tablet 50 Mg Oral Daily Tramadol Hcl (Ultram) 50 Mg Tablet 50 Mg Oral Every 6 Hours as needed for Pain Social History Social History Problem Response Recorded Date/Time Onset Date Status Hx Psychiatric Problems No 02/12/2018 8:24pm Not Applicable Not Applicable Hx Eating Disorder No 02/12/2018 8:24pm Not Applicable Not Applicable Hx Substance Use Disorder No 02/12/2018 8:24pm Not Applicable Not Applicable Hx Depression No 02/12/2018 8:24pm Not Applicable Not Applicable Hx Alcohol Use Y - no more 02/12/2018 8:24pm Not Applicable Not Applicable Hx Substance Use Treatment No 02/12/2018 8:24pm Not Applicable Not Applicable Hx Physical Abuse No 02/12/2018 8:24pm Not Applicable Not Applicable Smoking Status Start Date Stop Date Current every day smoker Hospital Discharge Instructions No hospital discharge instruction information available. Plan of Care Discharge Date 02/28/18 4:46pm Disposition HOME HEALTH SERVICE Instructions/Education Provided Cirrhosis Dehydration - Adult Post Operative Pain Stitches and Anum Care Prescriptions See Medication Section Referrals NELIA CAMPOVERDE MD (Internal Medicine) Order Date: 2 Weeks Entered Date: 02/28/2018 12:48pm Address: [address] [place] [address] MJ LOVELL MD (Surgery) Order Date: 1-2 Weeks Entered Date: 02/28/2018 12:48pm Address: [address] [place] [address] [address] [place] [address] EVIN DIAZ MD (Internal Medicine) Order Date: 3 Weeks Entered Date: 02/28/2018 12:49pm Address: [address] [place] [address] [address] [place] [address] Additional Instructions/Education ACTIVITY TOLERATED NO DRINKING ALCOHOL AT ALL F/U WITH ALL PHYSICIANS FOR APPROPRIATE F/U APPOINTMENTS NO HEAVY LIFTING. NO MORE THAN 5 POUNDS MONITOR ILEOSTOMY BAG AND CHANGE NEEDED CALL DR. DIAZ'S OFFICE ON SATURDAY ([phone]) FOR THE [facility] Functional Status Query Response Date Recorded FUNCTIONAL STATUS . February 20, 2018 12:29pm Assistive Devices None February 12, 2018 8:33pm Ambulation Ability Standby Assistance February 12, 2018 8:33pm Toileting Ability Minimum Assistance February 27, 2018 7:03pm Allergies, Adverse Reactions, Alerts No known allergies. Immunizations No immunization information available. Vital Signs Acute Vital Signs Vital Response Date/Time Temperature (Fahrenheit) 98.5 degrees F (97.6 - 99.5) 02/28/2018 4:13pm Pulse Pulse Rate (adult) 128 bpm (60 - 90) 02/28/2018 4:13pm Respiratory Rate 18 bpm (12 - 24) 02/28/2018 4:13pm Blood Pressure 142/81 mm Hg 02/28/2018 4:13pm Height 5 ft 10 in 02/17/2018 9:30am Weight 205.03 lb 02/28/2018 7:53am Body Mass Index 29.4 kg/m^2 02/28/2018 7:53am Results Laboratory Results Test Name Result Units Flags Reference Collection Date/Time Result Date/ Time Comments White Blood Count 13.01 x10e3/uL H 4.8-10.8 02/24/2018 6:00am 2017 7:22am Red Blood Count 2.56 x10e6/uL L 4.3-5.7 02/24/2018 6:00am 02/24/2018 7: 22am Hemoglobin 9.4 g/dL L 14.0-18.0 02/24/2018 6:00am 02/24/2018 7:22am Results called to SOPHY ABREU RN at 0722 on 02/24/18 by Rodrick Ramirez. RB OK. Hematocrit 28.4 % L 38.2-49.6 02/24/2018 6:00am 02/24/2018 7:22am Mean Corpuscular Volume 110.9 fL H 81-99 02/24/2018 6:00am 02/24/2018 7: 22am Mean Corpuscular Hemoglobin 36.7 pg H 28-32 02/24/2018 6:00am 2017 7:22am Mean Corpuscular Hemoglobin Concent 33.1 g/dL 31-35 02/24/2018 6:00am 02/24/2018 7:22am Red Cell Distribution Width 17.9 % H 11.7-14.4 02/24/2018 6:00am 2017 7:22am Platelet Count 236 x10e3/uL 140-360 02/24/2018 6:00am 02/24/2018 7: 22am Neutrophils (%) (Auto) 79.1 % 38.7-80.0 02/24/2018 6:00am 02/24/2018 7: 22am Lymphocytes (%) (Auto) 8.8 % L 18.0-39.1 02/24/2018 6:00am 02/24/2018 7: 22am Monocytes (%) (Auto) 9.5 % 4.4-11.3 02/24/2018 6:00am 02/24/2018 7: 22am Eosinophils (%) (Auto) 1.0 % 0.0-6.0 02/24/2018 6:00am 02/24/2018 7: 22am Basophils (%) (Auto) 0.4 % 0.0-1.0 02/24/2018 6:00am 02/24/2018 7:22am IM GRANULOCYTES % 1.2 % H 0.0-1.0 02/24/2018 6:0002/24/2018 7:22am Neutrophils # (Auto) 10.3 H 2.1-6.9 02/24/2018 6:00am 02/24/2018 7: 22am Lymphocytes # (Auto) 1.1 1.0-3.2 02/24/2018 6:00am 02/24/2018 7:22am Monocytes # (Auto) 1.2 H 0.2-0.8 02/24/2018 6:00am 02/24/2018 7:22am Eosinophils # (Auto) 0.1 0.0-0.4 02/24/2018 6:00am 02/24/2018 7:22am Basophils # (Auto) 0.1 0.0-0.1 02/24/2018 6:00am 02/24/2018 7:22am Absolute Immature Granulocyte (auto 0.15 x10e3/uL H 0-0.1 02/24/2018 6: 00am 02/24/2018 7:22am Differential Total Cells Counted 100 02/17/2018 4:54am 02/17/2018 8 :24am Neutrophils % (Manual) 81 % H 40-74 02/17/2018 4:54am 02/17/2018 8:24am Band Neutrophils % 12 % 02/16/2018 5:55am 02/16/2018 11:11am Lymphocytes % (Manual) 12 % L 19-48 02/17/2018 4:54am 02/17/2018 8:24am Monocytes % (Manual) 2 % L 3.4-9.0 02/16/2018 5:55am 02/16/2018 11:11am Metamyelocytes % 1 % H 0-0 02/17/2018 4:54am 02/17/2018 8:24am Myelocytes % 3 % H 0-0 02/17/2018 4:54am 02/17/2018 8:24am Reactive Lymphocytes 1 02/17/2018 4:54am 02/17/2018 8:24am Blast Cells % 2 02/17/2018 4:54am 02/17/2018 8:24am Platelet Estimate SLIGHTLY DECREASED 02/17/2018 4:54am 02/17/2018 8 :24am Platelet Morphology Comment FEW LARGE 02/17/2018 4:54am 02/17/2018 8:24am Hypochromasia MODERATE 02/17/2018 4:54am 02/17/2018 8:24am Poikilocytosis SLIGHT 02/17/2018 4:54am 02/17/2018 8:24am Anisocytosis SLIGHT 02/17/2018 4:54am 02/17/2018 8:24am Red Cell Morphology Comment NORMAL 02/17/2018 4:54am 02/17/2018 8: 24am Prothrombin Time 14.0 seconds 11.9-14.5 02/15/2018 1:40pm 02/15/2018 2: 24pm Prothromb Time International Ratio 1.17 02/15/2018 1:40pm 2017 2:24pm Oral Anticoagulant Therapy INR Values: 1. Low Intensity Therapy 1.5 - 2.0 2. Moderate Intensity Therapy 2.0 - 3.0 3. High Intensity Therapy(1) 2.5 - 3.5 4. High Intensity Therapy(2) 3.0 - 4.0 5. Panic Value INR > 5.0 Activated Partial Thromboplast Time 27.7 seconds 23.8-35.5 02/15/2018 1: 40pm 02/15/2018 2:24pm Urine Color MAYA H YELLOW 02/12/2018 12:15pm 02/12/2018 12:35pm Urine Clarity CLOUDY H CLEAR 02/12/2018 12:15pm 02/12/2018 12:35pm Urine Specific Bern 1.010 1.010-1.025 02/12/2018 12:15pm 2017 12:35pm Urine pH 7 5 - 7 02/12/2018 12:15pm 02/12/2018 12:35pm Urine Leukocyte Esterase NEGATIVE NEGATIVE 02/12/2018 12:15pm 2017 12:35pm Urine Nitrite NEGATIVE NEGATIVE 02/12/2018 12:15pm 02/12/2018 12: 35pm Urine Protein TRACE H NEGATIVE 02/12/2018 12:15pm 02/12/2018 12:35pm Urine Glucose (UA) NEGATIVE NEGATIVE 02/12/2018 12:15pm 02/12/2018 12 :35pm Urine Ketones NEGATIVE NEGATIVE 02/12/2018 12:15pm 02/12/2018 12: 35pm Urine Urobilinogen 8 mg/dL H 0.2 - 1 02/12/2018 12:15pm 02/12/2018 12: 35pm Urine Bilirubin NEGATIVE NEGATIVE 02/12/2018 12:15pm 02/12/2018 12: 35pm Urine Blood NEGATIVE NEGATIVE 02/12/2018 12:15pm 02/12/2018 12:35pm Urine WBC NONE /HPF 0-5 02/12/2018 12:15pm 02/12/2018 12:59pm Urine RBC NONE /HPF 0-5 02/12/2018 12:15pm 02/12/2018 12:59pm Urine Bacteria NONE /HPF NONE 02/12/2018 12:15pm 02/12/2018 12:59pm Urine Epithelial Cells FEW /LPF NONE 02/12/2018 12:15pm 02/12/2018 12: 59pm Urine Transitional Epithelial Cells RARE NONE 02/12/2018 12:15pm 02/2018 12:59pm Urine Hyaline Casts 2-5 H 0-1 02/12/2018 12:15pm 02/12/2018 12:59pm Sodium Level 132 mmol/L L 136-145 02/24/2018 10:07am 02/24/2018 10:31am Potassium Level 4.4 mmol/L 3.5-5.1 02/24/2018 10:07am 02/24/2018 10: 31am Chloride Level 103 mmol/L 98-107 02/24/2018 10:07am 02/24/2018 10:31am Carbon Dioxide Level 23 mmol/L 22-29 02/24/2018 10:07am 02/24/2018 10: 31am Anion Gap 10.4 mmol/L 8-16 02/24/2018 10:07am 02/24/2018 10:31am Blood Urea Nitrogen 15 mg/dL 7-02/24/2018 10:07am 02/24/2018 10: 31am Creatinine 0.52 mg/dL L 0.72-1.25 02/24/2018 10:07am 02/24/2018 10:31am BUN/Creatinine Ratio 29 H 6-02/24/2018 10:07am 02/24/2018 10:31am Estimat Glomerular Filtration Rate > 60 ML/MIN 60- 02/24/2018 10:07am 02/24/2018 10:31am Ranges were taken from the National Kidney Disease Education Program and the National Kid[employer] Foundation literature. Reference ranges: 60 or greater: Normal 16-59 (for 3 consecutive months): Chronic kidney disease 15 or less: Kidney failure Glucose Level 119 mg/dL H 74-118 02/24/2018 10:07am 02/24/2018 10:31am Calcium Level 8.2 mg/dL L 8.4-10.2 02/24/2018 10:07am 02/24/2018 10: 31am Bedside Glucose 86 mg/dL 70-120 02/27/2018 8:15pm 02/27/2018 11:41pm Meter ID: [id number] Phosphorus Level 2.4 MG/DL 2.3-4.7 02/18/2018 5:05am 02/18/2018 6:30am Magnesium Level 1.8 MG/DL 1.3-2.1 02/19/2018 5:28am 02/19/2018 6:56am Total Bilirubin 1.1 mg/dL 0.2-1.2 02/24/2018 10:07am 02/24/2018 10: 31am Aspartate Amino Transf (AST/SGOT) 61 IU/L H 5-34 02/24/2018 10:07 10:31am Alanine Aminotransferase (ALT/SGPT) 23 IU/L 0-55 02/24/2018 10:07 10:31am Total Protein 5.6 g/dL L 6.5-8.1 02/24/2018 10:0702/24/2018 10:31am Albumin 1.7 g/dL L 3.5-5.0 02/24/2018 10:0702/24/2018 10:31am Globulin 3.9 g/dL H 2.3-3.5 02/24/2018 10:0702/24/2018 10:31am Albumin/Globulin Ratio 0.4 L 0.8-2.0 02/24/2018 10:0702/24/2018 10: 31am Alkaline Phosphatase 133 IU/L 40-150 02/24/2018 10:07am 02/24/2018 10: 31am Creatine Kinase 26 IU/L L 30-200 02/12/2018 12:15pm 02/12/2018 12:59pm Creatine Kinase MB 0.80 ng/mL 0-5.0 02/12/2018 12:15pm 02/12/2018 1: 06pm Troponin I < 0.001 ng/mL 0-0.300 02/12/2018 12:15pm 02/12/2018 1:06pm Amylase Level 47 U/L 25-125 02/12/2018 12:15pm 02/12/2018 12:59pm Lipase 70 U/L 8-78 02/12/2018 12:15pm 02/12/2018 12:59pm Arterial Blood pH 7.42 H 7.31-7.41 02/18/2018 2:12pm 02/18/2018 2: 52pm Arterial Blood Partial Pressure CO2 31 mmHg L 41-51 02/18/2018 2:12pm 2:52pm Arterial Blood Partial Pressure O2 127 mmHg H 80-105 02/18/2018 2:12pm 02/18/2018 2:52pm Arterial Blood HCO3 20 mmol/L L 23-28 02/18/2018 2:12pm 02/18/2018 2: 52pm Arterial Blood Base Excess -4.0 mmol/L L -2 - 3 02/18/2018 2:12pm 2017 2:52pm Arterial Blood Oxygen Saturation 99.0 % H 95-98 02/18/2018 2:12pm 2017 2:52pm FiO2 40 % 02/18/2018 2:12pm 02/18/2018 2:52pm CPAP PS 8, PEEP 0, 40% Alpha Fetoprotein 9.3 ng/mL H 0.0-8.3 02/12/2018 4:30pm 02/13/2018 5: 34am [facility] ECLIA methodology Carcinoembryonic Antigen 84.2 ng/mL H 0.0-4.7 02/12/2018 4:30pm 2017 5:34am [facility] methodology Nonsmokers <3.9 Smokers <5.6 CA 19-9 Antigen 25 U/mL 0-35 02/12/2018 4:30pm 02/13/2018 5:34am [facility]CL[facility] methodology Performed at: [address] [id number] Wall Washer: Estuardo Rodriguez MD, Phone: [phone] Procedures Procedure Status Date Provider(s) Flexible sigmoidoscopy Completed 02/14/18 THONG DIAZ MD Exploratory laparotomy Completed 02/15/18 MJ LOVELL MD Computed tomography of abdomen and pelvis with contrast Active 02/12/18 RAMU BUSTOS CLAIM SERVICE REPRESENTATIVE US abdomen complete Active 02/12/18 RAMU BUSTOS CLAIM SERVICE REPRESENTATIVE X-ray of chest, two views Active 02/15/[address] of abdomen and pelvis without contrast Active 02/15/18 MJ LOVELL MD Computed tomography of abdomen and pelvis with contrast Active 02/20/18 MJ LOVELL MD Encounters Encounter Location Arrival/Admit Date Discharge/Depart Date Attending Provider Discharged Inpatient [facility] 02/12/18 4:31pm 04/20/18 4:46pm EVIN DIAZ MD
[2018-03-17] MEDS ORDERED: PROMETHAZINE HCL (IM) 25 MG/ML VIAL IV STA (13:54)
[2018-03-17] MEDS ORDERED: MORPHINE SULFATE 4 MG/ML SYR IV STA (13:54)
[2018-03-17] MEDS ORDERED: PANTOPRAZOLE 40 MG 10ML VIAL IV STA (13:54)
[2018-03-17] MEDS ORDERED: SODIUM CHLORIDE 0.9% 1000ML 1,000 ML IV STA (13:54)
[2018-03-17] MEDS ORDERED: SODIUM CHLORIDE 0.9% 1000ML 1,000 ML IV SCH (14:00)
[2018-03-17] MEDS ORDERED: MORPHINE SULFATE 2 MG/ML SYR ONE (14:40)
--- NOTE | 2018-03-17 14:40 | Diagnostic Imaging Report ---
EXAMINATION: Head CT HISTORY: Lightheadedness, unsteady gait, unable to stand for last 2 days, history of colon cancer. COMPARISON: None. TECHNIQUE: Multidetector axial images were obtained without contrast from the foramen magnum to the vertex . The images were reconstructed using brain and bone algorithms. Thin section brain images were reformatted into coronal and sagittal planes. Intravenous contrast: None. Motion/streaking artifact limits the evaluation of the skull base and posterior cranial fossa. FINDINGS: Parenchyma: 1. Few scattered white matter hypodensities, most likely nonspecific chronic microvascular ischemic changes. 2. No mass or hemorrhage. No CT evidence of acute territorial vascular insult. Extra-axial spaces:No abnormal density. No extra-axial fluid collections Brain volume: Normal for age. Ventricles: No hydrocephalus or displacement. Arteries: No density suggestive of thrombus. Dural sinuses: No abnormal density. Extra-axial spaces: No abnormal density. Foramen magnum: No mass, Chiari malformation, or basilar invagination. Sella: No obvious mass. Paranasal/mastoid sinuses: Imaged portions unremarkable. Skull/Scalp: No lytic or blastic lesions. No fractures. Small focal right lateral forehead soft tissue superficial nodule. IMPRESSION: 1. No intracranial mass, acute hemorrhage or cortical infarct. 2. Minimal chronic microvascular ischemic changes. Signed by: Dr. Mayra Diaz M.D. on 03/17/2018 2:37 PM
--- NOTE | 2018-03-17 14:45 | Diagnostic Imaging Report ---
PROCEDURE: A single AP view of the chest. COMPARISON: 02/18/18 INDICATIONS: UNSTEADY GAIT FINDINGS: Lines/tubes: None. Lungs: The lungs are well inflated and clear. There is no evidence of pneumonia or pulmonary edema. Pleura: There is no pleural effusion or pneumothorax. Heart and mediastinum: The heart and the mediastinum are unremarkable. Bones: No acute bony abnormality. Degenerative changes of the AC joints. IMPRESSION: 1. No acute cardiopulmonary disease. Dictated by: Matteo Iglesias M.D. on 03/17/2018 at 14:47 Electronically approved by: Matteo Iglesias M.D. on 03/17/2018 at 14:47
[2018-03-17 15:19] LABS: BASOPHILS # (AUTO) 0.1 (0.0-0.1); BASOPHILS % 0.5 % (0.0-1.0); EOSINOPHILS % 0.3 % (0.0-6.0); HEMATOCRIT 38.6 % (38.2-49.6); LYMPHOCYTES # (AUTO) 1.2 (1.0-3.2); LYMPHOCYTES % 11.4 % (18.0-39.1); MEAN CORPUSCULAR HEMOGLOBIN 32.7 pg (28-32); MEAN CORPUSCULAR HGB CONC 33.7 g/dL (31-35); MEAN CORPUSCULAR VOLUME 97.2 fL (81-99); MONOCYTES # (AUTO) 1.1 (0.2-0.8); NEUTROPHILS % 76.5 % (38.7-80.0); PLATELET COUNT 313 x10e3/uL (140-360); RED BLOOD COUNT 3.97 x10e6/uL (4.3-5.7); RED CELL DISTRIBUTION WIDTH 15.8 % (11.7-14.4)
[2018-03-17 15:26] LABS: INR 1.21; PROTHROMBIN TIME 14.4 seconds (11.9-14.5)
[2018-03-17 15:27] LABS: PARTIAL THROMBOPLASTIN TIME 30.3 seconds (23.8-35.5)
[2018-03-17 15:38] LABS: ALANINE AMINOTRANSFERASE 49 IU/L (0-55); ALBUMIN 2.5 g/dL (3.5-5.0); ALBUMIN/GLOBULIN RATIO 0.4 (0.8-2.0); ALKALINE PHOSPHATASE 154 IU/L (40-150); AMYLASE 57 U/L (25-125); BLOOD UREA NITROGEN 5 mg/dL (7-26); BUN/CREATININE RATIO 6 (6-25); CALCIUM 9.3 mg/dL (8.4-10.2); CARBON DIOXIDE 22 mmol/L (22-29); CHLORIDE 101 mmol/L (98-107); CREATININE, SERUM 0.78 mg/dL (0.72-1.25); EST GLOMERULAR FILTRATION RATE > 60 ML/MIN (60-); GLUCOSE 109 mg/dL (74-118); LIPASE 135 U/L (8-78); SODIUM 132 mmol/L (136-145)
[2018-03-17] MEDS ORDERED: PROMETHAZINE HCL (IM) 25 MG/ML VIAL IV PRN (16:30)
[2018-03-17] MEDS ORDERED: METOPROLOL SUCC50 MG (17:44)
[2018-03-17] MEDS ORDERED: XIFAXAN550 MG (17:44)
[2018-03-17] MEDS ORDERED: METOPROLOL TARTRATE INJ 1 MG/ML VIAL IV ONE ×2 (18:00→19:30)
[2018-03-17] MEDS: SODIUM CHLORIDE 0.9% 1000ML 1,000 ML IV SCH (18:10)
[2018-03-17 18:24] LABS: CLARITY,URINE CLOUDY (CLEAR); COLOR,URINE YELLOW (YELLOW)
[2018-03-17 18:25] LABS: BILIRUBIN,URINE NEGATIVE (NEGATIVE); KETONES,URINE NEGATIVE (NEGATIVE); LEUKOCYTE ESTERASE ,URINE 2+ (NEGATIVE); NITRITE,URINE NEGATIVE (NEGATIVE); PROTEIN,URINE DIPSTICK NEGATIVE (NEGATIVE); URINE UROBILINOGEN 0.2 mg/dL (0.2 - 1)
[2018-03-17 18:36] LABS: BACTERIA,URINE MANY /HPF; MUCUS,URINE RARE (RARE); WBC,URINE (MAN) >50 /HPF (0-5)
[2018-03-17] MEDS: MORPHINE SULFATE 2 MG/ML SYR IV PRN (18:45)
[2018-03-17] MEDS ORDERED: HYDRALAZINE HCL 20 MG/ML VIAL IV STA (22:52)
[2018-03-17] MEDS ORDERED: HYDRALAZINE HCL 20 MG/ML VIAL IV PRN (23:00)
[2018-03-18] VITALS (8 sets, daily range): BP systolic 129–163; BP diastolic 83–93
[2018-03-18] MEDS: SODIUM CHLORIDE 0.9% 1000ML 1,000 ML IV SCH ×3 (00:34→19:10)
[2018-03-18] MEDS: MORPHINE SULFATE 2 MG/ML SYR IV PRN ×4 (01:28→19:10)
[2018-03-18 06:57] LABS: BASOPHILS # (AUTO) 0.1 (0.0-0.1); BASOPHILS % 0.6 % (0.0-1.0); EOSINOPHILS # (AUTO) 0.2 (0.0-0.4); EOSINOPHILS % 1.7 % (0.0-6.0); HEMATOCRIT 33.2 % (38.2-49.6); HEMOGLOBIN 11.2 g/dL (14.0-18.0); LYMPHOCYTES # (AUTO) 1.8 (1.0-3.2); LYMPHOCYTES % 19.3 % (18.0-39.1); MEAN CORPUSCULAR HEMOGLOBIN 32.7 pg (28-32); MEAN CORPUSCULAR HGB CONC 33.7 g/dL (31-35); MEAN CORPUSCULAR VOLUME 97.1 fL (81-99); MONOCYTES # (AUTO) 1.2 (0.2-0.8); MONOCYTES % 12.7 % (4.4-11.3); NEUTROPHILS # (AUTO) 6.2 (2.1-6.9); NEUTROPHILS % 65.5 % (38.7-80.0); PLATELET COUNT 260 x10e3/uL (140-360); RED BLOOD COUNT 3.42 x10e6/uL (4.3-5.7); RED CELL DISTRIBUTION WIDTH 15.5 % (11.7-14.4)
[2018-03-18 07:27] LABS: ALANINE AMINOTRANSFERASE 33 IU/L (0-55); ALBUMIN 2.1 g/dL (3.5-5.0); ALBUMIN/GLOBULIN RATIO 0.4 (0.8-2.0); ALKALINE PHOSPHATASE 117 IU/L (40-150); ANION GAP 11.3 mmol/L (8-16); BLOOD UREA NITROGEN 6 mg/dL (7-26); BUN/CREATININE RATIO 8 (6-25); CALCIUM 8.8 mg/dL (8.4-10.2); CARBON DIOXIDE 23 mmol/L (22-29); CHLORIDE 103 mmol/L (98-107); CREATININE, SERUM 0.72 mg/dL (0.72-1.25); EST GLOMERULAR FILTRATION RATE > 60 ML/MIN (60-); GLUCOSE 96 mg/dL (74-118); POTASSIUM 4.3 mmol/L (3.5-5.1); SODIUM 133 mmol/L (136-145)
[2018-03-19 00:35] VITALS: BP 161/97
[2018-03-19] MEDS: MORPHINE SULFATE 2 MG/ML SYR IV PRN (02:45)
[2018-03-19 04:00] VITALS: BP 173/97
[2018-03-19] MEDS: SODIUM CHLORIDE 0.9% 1000ML 1,000 ML IV SCH ×2 (06:07→08:27)
[2018-03-19 06:53] LABS: BASOPHILS % 0.4 % (0.0-1.0); EOSINOPHILS # (AUTO) 0.1 (0.0-0.4); EOSINOPHILS % 1.5 % (0.0-6.0); HEMATOCRIT 33.6 % (38.2-49.6); HEMOGLOBIN 11.1 g/dL (14.0-18.0); LYMPHOCYTES # (AUTO) 1.8 (1.0-3.2); MEAN CORPUSCULAR HEMOGLOBIN 32.6 pg (28-32); MEAN CORPUSCULAR VOLUME 98.5 fL (81-99); MONOCYTES # (AUTO) 1.1 (0.2-0.8); MONOCYTES % 11.6 % (4.4-11.3); NEUTROPHILS # (AUTO) 6.2 (2.1-6.9); NEUTROPHILS % 67.2 % (38.7-80.0); PLATELET COUNT 229 x10e3/uL (140-360); RED BLOOD COUNT 3.41 x10e6/uL (4.3-5.7); RED CELL DISTRIBUTION WIDTH 15.7 % (11.7-14.4)
[2018-03-19 07:14] LABS: ANION GAP 10.6 mmol/L (8-16); BLOOD UREA NITROGEN 7 mg/dL (7-26); BUN/CREATININE RATIO 10 (6-25); CALCIUM 8.5 mg/dL (8.4-10.2); CARBON DIOXIDE 22 mmol/L (22-29); CHLORIDE 103 mmol/L (98-107); EST GLOMERULAR FILTRATION RATE > 60 ML/MIN (60-); GLUCOSE 94 mg/dL (74-118); POTASSIUM 3.6 mmol/L (3.5-5.1); SODIUM 132 mmol/L (136-145)
[2018-03-19 07:26] VITALS: BP 130/79
[2018-03-19 08:00] VITALS: BP 130/79
[2018-03-19 11:20] VITALS: BP 140/82
[2018-03-19] MEDS ORDERED: CIPRO500 MG PO (13:05)
== END 2018-03-19 13:30 | disposition home or self-care (01) ==
LOC: ER 13:26 → INTOOBSV 16:27 → ERHOLD 16:27 → IMCU 21:14
DX: E86.0 Dehydration (principal); G89.3 Neoplasm related pain (acute) (chronic); C18.9 Malignant neoplasm of colon, unspecified; C78.7 Secondary malignant neoplasm of liver and intrahepatic bile duct; K70.30 Alcoholic cirrhosis of liver without ascites; B19.20 Unspecified viral hepatitis C without hepatic coma; R53.1 Weakness; E88.09 Other disorders of plasma-protein metabolism, not elsewhere classified
CPT/HCPCS: 36415 ×3; 70450; 71045; 80048; 80053 ×2; 81001; 82150; 83690; 85025 ×3; 85610; 85730; 87086; 87186; 93005; 96376; 99284; G0378 ×3; J0360 ×2; J2270 ×3; J2550; J7030 ×3